=== PATIENT | male | born 1945 | race Caucasian/White ===

== ENCOUNTER 2020-09-22 07:37 | Day surgery (SDC) | payer MEDICARE, BC ==
[~2020-09-22] VITALS: Ht 190.5 cm; Wt 99.7 kg
[2020-09-22] VITALS (7 sets, daily range): BP systolic 116–176; BP diastolic 55–78
[2020-09-22] MEDS ORDERED: vancomycin/NS 1 GM ADD-VANTAGE 250 ML IV ONE (08:10)
[2020-09-22] MEDS ORDERED: Cefazolin 2GM/100ML NS IVPB 100 ML IV ONE (08:10)
[2020-09-22] MEDS ORDERED: normal saline 1000ml 1,000 ML IV SCH ×2 (08:10→11:05)
[2020-09-22] MEDS ORDERED: AMLO5TAB16 PO (08:27)
[2020-09-22] MEDS ORDERED: MOME220A3 (08:27)
[2020-09-22] MEDS ORDERED: DOXE10CA3 PO (08:27)
[2020-09-22] MEDS ORDERED: FLEC100T PO (08:27)
[2020-09-22] MEDS ORDERED: UMEC1DIS (08:27)
[2020-09-22] MEDS ORDERED: WARF-55 PO (08:27)
[2020-09-22] MEDS ORDERED: CHOL20004 PO (08:28)
[2020-09-22] MEDS ORDERED: OMEP-50 PO (08:29)
[2020-09-22] MEDS ORDERED: MAGN400C PO (08:31)
[2020-09-22 08:37] LABS: BASOPHILS % (AUTO) 0.4 % (0-1); EOSINOPHILS # (AUTO) 0.1 X10'3 (0-0.9); EOSINOPHILS % (AUTO) 1.9 % (0-6); HEMATOCRIT 47.8 % (42.0-52.0); HEMOGLOBIN 16.4 g/dl (14.0-17.9); LYMPHOCYTES # (AUTO) 2.5 X10'3 (1.1-4.8); LYMPHOCYTES % (AUTO) 40.8 % (21-51); MEAN CORPUSCULAR HEMOGLOBIN 31.2 PG (27.0-31.0); MEAN CORPUSCULAR HGB CONC 34.2 g/dL (33.0-36.5); MEAN CORPUSCULAR VOLUME 91.1 FL (78-98); MEAN PLATELET VOLUME 9.8 FL (7.4-10.4); MONOCYTES # (AUTO) 0.8 X10'3 (0-0.9); MONOCYTES % (AUTO) 12.7 % (2-12); NEUTROPHILS # (AUTO) 2.7 X10'3 (1.8-7.7); NEUTROPHILS % (AUTO) 44.2 % (42-75); PLATELET COUNT 227 X10'3 (140-440); RED BLOOD COUNT 5.25 X10'6 (4.70-6.10); WHITE BLOOD COUNT 6.1 X10'3 (4.5-11.0)
[2020-09-22 08:48] LABS: ALBUMIN 3.7 G/DL (3.4-5.0); ANION GAP 8 (8-16); BLOOD UREA NITROGEN 21 MG/DL (7-18); BUN/CREATININE RATIO 17.5 (5.4-32.0); CHLORIDE 103 MMOL/L (99-107); GLUCOSE 98 MG/DL (70-104); MAGNESIUM 2.5 MG/DL (1.5-2.4); POTASSIUM 4.1 MMOL/L (3.5-5.1); SODIUM 140 MMOL/L (135-145); eGFR 59 ML/MIN
[2020-09-22] MEDS ORDERED: midazolam 1 mg/ML 2ml injection ONE ×3 (08:50→09:54)
[2020-09-22] MEDS ORDERED: fentaNYL/PF 50MCG/1 ML 2ML syringe ONE (08:50)
[2020-09-22] MEDS ORDERED: LIDOcaine 1% (10mg/ml)w/preservative injection 20ml MDV ONE ×2 (08:50)
[2020-09-22] MEDS ORDERED: ceFAZolin 2gm in dextrose, iso 50 ML IV ONE (08:51)
[2020-09-22] MEDS ORDERED: ceFAZolin 1000mg inj ONE (08:51)
[2020-09-22] MEDS ORDERED: LIDOcaine 1% W/epiNEPHrine 1:100,000 20ml vial ONE (09:41)
== END 2020-09-22 12:50 | disposition home or self-care (01) ==
LOC: SSTAY O 07:37
PROVIDERS: ATTEND Internal Medicine Cardiovascular Disease
DX: I49.5 Sick sinus syndrome (principal); I45.89 Other specified conduction disorders; I48.91 Unspecified atrial fibrillation; J44.9 Chronic obstructive pulmonary disease, unspecified; I47.1 Supraventricular tachycardia; I10 Essential (primary) hypertension; G47.00 Insomnia, unspecified; F17.210 Nicotine dependence, cigarettes, uncomplicated; Z79.899 Other long term (current) drug therapy; Z79.01 Long term (current) use of anticoagulants; Z98.890 Other specified postprocedural states; Z82.3 Family history of stroke; Z80.9 Family history of malignant neoplasm, unspecified
CPT/HCPCS: 33208; 36415; 71045; 80048; 83735; 85025; 85610; 93005; 99152; 99153; C1785; C1898; J0690; J2001; J2250; J3010; A4565; A4620; A6258

== ENCOUNTER → 2021-02-09 | Outpatient (CLI) | payer MEDICARE, BC ==
[~2021-02-09] VITALS: Ht 160 cm; Wt 98.4 kg
[~2021-02-09] MED LIST: AMLO5TAB16 PO; CHOL20004 PO; DOXE10CA3 PO; FLEC100T PO; MAGN400C PO; MOME220A3; OMEP-50 PO; UMEC1DIS; WARF-55 PO; albuterol 2.5 MG/3 ML nebule NEB PRN
== END | disposition home or self-care (01) ==
LOC: RT 14:44
PROVIDERS: ATTEND Internal Medicine
DX: R94.2 Abnormal results of pulmonary function studies (principal); J44.9 Chronic obstructive pulmonary disease, unspecified
CPT/HCPCS: 94060; 94760

== ENCOUNTER 2021-03-28 04:56 | Outpatient (CLI) | payer MEDICARE, BC ==
[~2021-03-28 04:56] MED LIST changes: -albuterol 2.5 MG/3 ML nebule NEB PRN
== END 2021-03-28 23:59 | disposition home or self-care (01) ==
LOC: RT 04:56
PROVIDERS: ATTEND Internal Medicine
DX: J45.909 Unspecified asthma, uncomplicated (principal); J44.9 Chronic obstructive pulmonary disease, unspecified
CPT/HCPCS: 94618

== ENCOUNTER 2022-03-24 07:50 | Emergency (ER) | payer MEDICARE, BC ==
[~2022-03-24] VITALS: Ht 188 cm; Wt 94.1 kg
[~2022-03-24 07:50] MED LIST changes: -MOME220A3; -OMEP-50 PO; +OMEP20CA16 PO; +[UNRECOGNIZED DRUG - CODE]
[2022-03-24 08:08] VITALS: BP 148/68
[2022-03-24] MEDS ORDERED: dexamethasone 4mg tablet PO ONE (08:35)
[2022-03-24] MEDS ORDERED: albuterol 2.5 MG/3 ML nebule NEB ONE (08:35)
[2022-03-24] MEDS ORDERED: ipratropium 0.5 MG/2.5ML nebule IH ONE (08:35)
[2022-03-24 10:00] LABS: BASOPHILS # (AUTO) 0.1 X10'3 (0-0.2); BASOPHILS % (AUTO) 1.1 % (0-1); EOSINOPHILS # (AUTO) 0.2 X10'3 (0-0.9); EOSINOPHILS % (AUTO) 2.9 % (0-6); HEMATOCRIT 44.4 % (42.0-52.0); HEMOGLOBIN 15.5 g/dl (14.0-17.9); LYMPHOCYTES # (AUTO) 1.5 X10'3 (1.1-4.8); LYMPHOCYTES % (AUTO) 22.8 % (21-51); MEAN CORPUSCULAR HGB CONC 34.9 g/dL (33.0-36.5); MEAN CORPUSCULAR VOLUME 88.8 FL (78-98); MEAN PLATELET VOLUME 9.2 FL (7.4-10.4); MONOCYTES % (AUTO) 15.1 % (2-12); NEUTROPHILS # (AUTO) 3.9 X10'3 (1.8-7.7); NEUTROPHILS % (AUTO) 58.1 % (42-75); PLATELET COUNT 162 X10'3 (140-440); RED CELL DISTRIBUTION WIDTH 13.9 % (11.5-14.5); WHITE BLOOD COUNT 6.8 X10'3 (4.5-11.0)
[2022-03-24 10:15] LABS: ALANINE AMINOTRANSFERASE 56 U/L (12-78); ALBUMIN 3.2 G/DL (3.4-5.0); ALBUMIN/GLOBULIN RATIO 0.9 (1.1-1.5); ALKALINE PHOSPHATASE 96 IU/L (46-116); ANION GAP 8 (8-16); ASPARTATE AMINO TRANSFERASE 57 U/L (10-37); BILIRUBIN,TOTAL 1.3 MG/DL (0.1-1.0); BLOOD UREA NITROGEN 19 MG/DL (7-18); BUN/CREATININE RATIO 17.4 (5.4-32.0); CALCIUM 8.8 MG/DL (8.5-10.1); CHLORIDE 103 MMOL/L (99-107); CREATININE 1.09 MG/DL (0.60-1.10); GLUCOSE 99 MG/DL (70-104); POTASSIUM 3.9 MMOL/L (3.5-5.1); SODIUM 138 MMOL/L (135-145); TOTAL CARBON DIOXIDE 27.2 MMOL/L (24-32); TOTAL PROTEIN 6.8 G/DL (6.4-8.2); eGFR 65 ML/MIN
[2022-03-24] MEDS ORDERED: PRED20TA PO (11:14)
[2022-03-24] MEDS ORDERED: IPRA4AER IH (11:14)
== END 2022-03-24 11:50 | disposition home or self-care (01) ==
LOC: ER 07:50
DX: J44.9 Chronic obstructive pulmonary disease, unspecified (principal); Z20.822 Contact with and (suspected) exposure to COVID-19; J06.9 Acute upper respiratory infection, unspecified; Z87.891 Personal history of nicotine dependence
CPT/HCPCS: 36415; 71045; 80053; 83880; 84484; 85025; 87811; 93005; 94760; 99285

== ENCOUNTER 2024-09-30 13:40 | Emergency (ER) | payer BC, MEDICARE, OTHER ==
[~2024-09-30] VITALS: Ht 190.5 cm; Wt 87.1 kg
[2024-09-30 13:44] VITALS: TEMP 97.7
[2024-09-30 14:03] LABS: BASOPHILS # (AUTO) 0.1 X10'3 (0-0.2); BASOPHILS % (AUTO) 1.5 % (0-1); EOSINOPHILS # (AUTO) 0.6 X10'3 (0-0.9); EOSINOPHILS % (AUTO) 10.4 % (0-6); HEMATOCRIT 44.4 % (42.0-52.0); HEMOGLOBIN 14.8 g/dl (14.0-17.9); LYMPHOCYTES # (AUTO) 1.9 X10'3 (1.1-4.8); LYMPHOCYTES % (AUTO) 35.1 % (21-51); MEAN CORPUSCULAR HEMOGLOBIN 30.3 PG (27.0-31.0); MEAN CORPUSCULAR HGB CONC 33.4 g/dL (33.0-36.5); MEAN CORPUSCULAR VOLUME 90.7 FL (78-98); MONOCYTES # (AUTO) 0.7 X10'3 (0-0.9); MONOCYTES % (AUTO) 12.2 % (2-12); NEUTROPHILS # (AUTO) 2.2 X10'3 (1.8-7.7); NEUTROPHILS % (AUTO) 40.8 % (42-75); PLATELET COUNT 158 X10'3 (140-440); RED BLOOD COUNT 4.89 X10'6 (4.70-6.10); RED CELL DISTRIBUTION WIDTH 15.3 % (11.5-14.5); WHITE BLOOD COUNT 5.5 X10'3 (4.5-11.0)
--- NOTE | 2024-09-30 14:07 | ELECTROCARDIOGRAPH REPORT ---
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 Jaspreet Darby Measurements Intervals [place] Rate: 61 P: 0 GA: 159 QRS: 81 QRSD: 107 T: 68 QT: 444 QTc: 448 Interpretive Statements Atrial-paced complexes Borderline right axis deviation Baseline wander in lead(s) V4 Electronically Signed On 09-30-2024 20:38:[address] Jaspreet Darby Please click the below link to view image of tracing.
[2024-09-30 14:12] LABS: ALBUMIN 3.3 G/DL (3.4-5.0); ANION GAP 4 (8-16); BLOOD UREA NITROGEN 13 MG/DL (7-18); BUN/CREATININE RATIO 11.8 (10.0-20.0); CALCIUM 8.5 MG/DL (8.5-10.1); CHLORIDE 103 MMOL/L (99-107); GLUCOSE 95 MG/DL (70-104); POTASSIUM 4.1 MMOL/L (3.5-5.1); SODIUM 138 MMOL/L (135-145); TOTAL CARBON DIOXIDE 30.8 MMOL/L (24-32); eCRCL 63 ML/MIN; eGFR 64 ML/MIN
[2024-09-30 14:16] LABS: APTT 26 SECONDS (22-32); INR 1.1 INR; PROTHROMBIN TIME 11.6 SECONDS (9.0-12.0)
--- NOTE | 2024-09-30 14:20 | RADIOLOGY REPORT ---
EXAM: CT CT STROKE ALERT INDICATION: Stroke Alert TECHNIQUE: CT of the head without intravenous contrast. Radiation Dose Information: CT Dose: CTDI volume is 63.23 mGy. Dose-length product is 1157.61 mGy*cm The dose indicators for CT are the volume Computed Tomography (CT) Dose Index (CTDIvol) and the Dose Length Product (DLP), and are measured in units of mGy and mGy-cm, respectively. These indicators are not patient dose, but values generated from the CT scanner acquisition factors. The report includes radiation exposure data for exposures received during this examination. COMPARISON: None FINDINGS: There is no evidence of acute intracranial hemorrhage, extra-axial collection, mass effect, midline s hift, herniation or hydrocephalus. 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 The ventricles, sulci and cisterns are age appropriate. The vasques-white differentiation is intact. Patchy periventricular and subcortical white matter hypoattenuation is nonspecific but may be related to small vessel ischemic disease. The visualized paranasal sinuses and mastoid air cells are clear. The surrounding soft tissues and osseous structures are unremarkable. IMPRESSION: 1. No acute intracranial hemorrhage 2. Cortical atrophy 3. No CT findings of territorial ischemia. CRITICAL FINDINGS Critical Result: Stroke Alert NEGATIVE Findings discussed with Dr Doshi , at 09/30/2024 02:11 PM, and acknowledged receipt and understand ing of the findings.
--- NOTE | 2024-09-30 14:29 | RADIOLOGY REPORT ---
CHEST RADIOGRAPH Indication: Stroke Alert Technique: Single frontal view of the chest was obtained Comparison: CHEST,SINGLE VIEW on DOS: 03/24/22, CHEST,SINGLE VIEW on DOS: 09/22/20 FINDINGS: Lines and Tubes: Dual-chamber pacemaker in place with pulse generator over the left chest. Findings d o not appear significantly changed from 03/24/2022 Lungs: No focal consolidation. Pleura: No effusion. No pneumothorax. Cardiomediastinal contours: Unremarkable Bones: No acute osseous abnormality. IMPRESSION: 1. No acute cardiopulmonary disease.
--- NOTE | 2024-09-30 14:49 | Physician Documentation ---
History of Present Illness ~ Chief Complaint: Stroke Alert Stated Complaint: WEAKNESS/DIZZINESS Time Seen by MD: 14:23 Mode of Arrival: Dropped Off HPI 79-year-old male presenting for dizziness. Patient states that his symptoms started this morning. He was walking around her home and started feeling very unsteady on his feet. He states that he felt lightheaded to and is if he was going to pass out. He sat down and was brought to the emergency department. He denies any chest pain, shortness of breath or any other associated symptoms. He denies any actual syncopal episode or loss of consciousness. Medication Reconciliation Allergies: Coded Allergies: No Known Allergies (Unverified , 03/24/22) Scheduled Amlodipine Besylate (Amlodipine Besylate), 1 TAB PO DAILY, (Reported) Cholecalciferol (Vitamin D), 1 TAB PO DAILY, (Reported) Doxepin HCl (Doxepin HCl), 1 CAP PO HS, (Reported) Flecainide Acetate (Flecainide Acetate), 1 TAB PO BID, (Reported) Magnesium Oxide (Magnesium), Unknown Dose PO DAILY, (Reported) Omeprazole (Omeprazole), 1 CAP PO DAILY, (Reported) Warfarin Sodium (Warfarin Sodium), 1 TAB PO DAILY, (Reported) Miscellaneous Medications Mometasone Furoate (Asmanex), 1 PUFFS, (Reported) Umeclidinium Brm/Vilanterol Tr (Anoro Ellipta 62.5-25 Mcg INH), (Reported) Past Medical History Past Medical History: Bronchitis Review of Systems All Other Systems at this time: Reviewed and Negative Physical Exam Vital Signs: Temperature: 97.7, Source: Oral, Heart Rate: 63, Respiratory Rate: 16, BP: 145/77, Pulse Oximetry: 96, Weight: 87.100 Oxygen Flow Rate: 0 Physical Exam I have reviewed the triage vitals. CONST: Well developed and well nourished. In no acute distress HENT: Head Atraumatic EYES: Pupils are equal, round and reactive to light. Normal conjunctiva NECK: Normal range of motion. Supple. CARDIO: Normal rate and regular rhythm. No murmurs, rubs, or gallops. S1, S2. PULM/CHEST: No respiratory distress. Lungs clear to auscultation. No wheeze ABD: Soft and nontender. Nondistended. Bowel sounds normal. No guarding. : Exam deferred MSK: No edema. No deformity. NEURO: Alert and oriented to person, place and time. Moving all extremities SKIN: Warm and dry. PSYCH: Normal mood and affect. Good eye contact. Progress Results/Orders Results/Orders Orders - OLU HERNANDEZ MD Monitor (09/30/24 13:47) 2 Large Bore Ivs (09/30/24 13:47) Chest,Single View (09/30/24 13:47) Accucheck (09/30/24 13:47) Ct Stroke Alert (09/30/24 13:47) Completed Orders - OLU HERNANDEZ MD Cbc/Diff (09/30/24 13:47) Electrocardiogram (09/30/24 13:47) Chest,Single View (09/30/24 13:47) Ct Stroke Alert (09/30/24 13:47) BMP (09/30/24 13:47) PTT (09/30/24 13:47) Pt Inr (09/30/24 13:47) ESR (09/30/24 15:06) C-Reactive Protein (09/30/24 13:54) Vital Signs 09/30/24 09/30/24 09/30/24 09/30/24 13:44 14:00 14:17 14:27 Temp 97.7 Pulse 68 62 62 Resp 16 13 11 12 B/P (MAP) 139/87 145/77 148/73 Pulse Ox 97 97 97 O2 Flow Rate 0 09/30/24 09/30/24 14:42 15:42 Pulse 63 60 Resp 16 11 B/P (MAP) 145/77 (99) 137/77 (97) Pulse Ox 96 97 O2 Flow Rate 0 0 Laboratory Tests Test 09/30/24 13:50 09/30/24 13:54 Glucometer 107 H White Blood Count 5.5 Red Blood Count 4.89 Hemoglobin 14.8 Hematocrit 44.4 Mean Corpuscular Volume 90.7 Mean Corpuscular Hemoglobin 30.3 Mean Corpuscular Hemoglobin Concent 33.4 Red Cell Distribution Width 15.3 H Platelet Count 158 Mean Platelet Volume 9.0 Neutrophils (%) (Auto) 40.8 L Lymphocytes (%) (Auto) 35.1 Monocytes (%) (Auto) 12.2 H Eosinophils (%) (Auto) 10.4 H Basophils (%) (Auto) 1.5 H Neutrophils # (Auto) 2.2 Lymphocytes # (Auto) 1.9 Monocytes # (Auto) 0.7 Eosinophils # (Auto) 0.6 Basophils # (Auto) 0.1 CBC Comment Erythrocyte Sedimentation Rate 7 Prothrombin Time 11.6 INR International Normalized Ratio 1.1 Activated Partial Thromboplast Time 26 Coagulation Comments Sodium Level 138 Potassium Level 4.1 Chloride Level 103 Carbon Dioxide Level 30.8 Anion Gap 4 L Blood Urea Nitrogen 13 Creatinine 1.10 Estimated GFR/1.73 m2 64 BUN/Creatinine Ratio 11.8 Glucose Level 95 Calcium Level 8.5 C-Reactive Protein 0.90 H Albumin 3.3 L Chemistry Comments EKG/XRAY/CT/US/VASC/MRI Chest X-Ray : Additional Comments CHEST RADIOGRAPH Indication: Stroke Alert Technique: Single frontal view of the chest was obtained Comparison: CHEST,SINGLE VIEW on DOS: 03/24/22, CHEST,SINGLE VIEW on DOS: 09/22/20 FINDINGS: Lines and Tubes: Dual-chamber pacemaker in place with pulse generator over the left chest. Findings do not appear significantly changed from 03/24/2022 Lungs: No focal consolidation. Pleura: No effusion. No pneumothorax. Cardiomediastinal contours: Unremarkable Bones: No acute osseous abnormality. IMPRESSION: 1. No acute cardiopulmonary disease. : Impression EXAM: CT CT STROKE ALERT INDICATION: Stroke Alert TECHNIQUE: CT of the head without intravenous contrast. Radiation Dose Information: CT Dose: CTDI volume is 63.23 mGy. Dose-length product is 1157.61 mGy*cm The dose indicators for CT are the volume Computed Tomography (CT) Dose Index (CTDIvol) and the Dose Length Product (DLP), and are measured in units of mGy and mGy-cm, respectively. These indicators are not patient dose, but values generated from the CT scanner acquisition factors. The report includes radiation exposure data for exposures received during this examination. COMPARISON: None FINDINGS: There is no evidence of acute intracranial hemorrhage, extra-axial collection, mass effect, midline shift, herniation or hydrocephalus. 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 The ventricles, sulci and cisterns are age appropriate. The vasques-white differentiation is intact. Patchy periventricular and subcortical white matter hypoattenuation is nonspecific but may be related to small vessel ischemic disease. The visualized paranasal sinuses and mastoid air cells are clear. The surrounding soft tissues and osseous structures are unremarkable. IMPRESSION: 1. No acute intracranial hemorrhage 2. Cortical atrophy 3. No CT findings of territorial ischemia. CRITICAL FINDINGS Critical Result: Stroke Alert NEGATIVE Findings discussed with Dr Hernandez , at 09/30/2024 02:11 PM, and acknowledged receipt and understanding of the findings. Departure Disposition: HOME / SELF CARE / HOMELESS Impression: Primary Impression: Dizziness Condition: Improved Discharge Instructions: Dizziness Additional Instructions: Please drink plenty of fluids. Please ensure that you get plenty of rest today. Take good care and be careful when getting up from a seated position and always use an assistive device to ambulate. Follow up very closely with primary care physician in the next 2-3 days. Return to the emergency department with any acutely worsening symptoms. Referrals: NO PRIMARY CARE PROVIDER (PCP) OLU HERNANDEZ MD September 30, 2024 14:49
[2024-09-30 17:04] VITALS: BP 160/65; PULSE 60; RESP 13; O2SAT 95
== END 2024-09-30 17:07 | disposition home or self-care (01) ==
LOC: ER 13:40
DX: R42 Dizziness and giddiness (principal); Z79.899 Other long term (current) drug therapy
CPT/HCPCS: 36415; 70450; 71045; 80048; 82948; 85025; 85610; 85651; 85730; 86140; 93005; 99285

== ENCOUNTER 2024-12-17 17:19 | Emergency (ER) | payer OTHER ==
[~2024-12-17] VITALS: Ht 190.5 cm; Wt 62.2 kg
[2024-12-17 17:25] VITALS: BP 118/73; PULSE 74; RESP 16; O2SAT 96
--- NOTE | 2024-12-17 18:18 | Physician Documentation ---
History of Present Illness ~ Chief Complaint: Mechanical Fall Stated Complaint: FALL Time Seen by MD: 18:10 Source: patient, family Mode of Arrival: POV Exam Limitations: no limitations HPI 79-year-old male on blood thinners denies head strike or loss of consciousness had a ground level mechanical fall where he was walking in a parking lot with his and his toe scraped 1 of the tired providers in a parking lot he was between 2 cars and had a skin tear to the left arm and an abrasion to the left knee. Patient did not hit his head the fall was witnessed from his . Patient has been having some chronic balance issues has been evaluated by his primary care referred to physical therapy and has a prescription for a walker due to some of his balance issues. Tetanus within 5 Years?: No Medication Reconciliation Allergies: Coded Allergies: No Known Allergies (Unverified , 03/24/22) Scheduled Amlodipine Besylate (Amlodipine Besylate), 1 TAB PO DAILY, (Reported) Cholecalciferol (Vitamin D), 1 TAB PO DAILY, (Reported) Doxepin HCl (Doxepin HCl), 1 CAP PO HS, (Reported) Flecainide Acetate (Flecainide Acetate), 1 TAB PO BID, (Reported) Magnesium Oxide (Magnesium), Unknown Dose PO DAILY, (Reported) Omeprazole (Omeprazole), 1 CAP PO DAILY, (Reported) Warfarin Sodium (Warfarin Sodium), 1 TAB PO DAILY, (Reported) Miscellaneous Medications Mometasone Furoate (Asmanex), 1 PUFFS, (Reported) Umeclidinium Brm/Vilanterol Tr (Anoro Ellipta 62.5-25 Mcg INH), (Reported) Past Medical History 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 HEENT: PERRL, EOMI, no injection, moist mucous membranes. Neck: Full range of motion. No cervical spine tenderness Respiratory: Lungs clear, no respiratory distress. Chest: No accessory muscle use. Cardiovascular: Regular rate and rhythm, no murmurs. Extremities: Normal range of motion, no deformity. No obvious deformity to the left knee small superficial abrasions. Multiple skin avulsion/tears to the left forearm and upper extremity no tenderness to the elbow forearm wrist or hand. Neurologic: Oriented x4. Psychiatric: Normal mood and affect. Skin: Normal color, warm and dry. No edema, no ecchymosis. Progress Results/Orders Results/Orders Vital Signs 12/17/24 17:25 Temp 98.3 Pulse 74 Resp 16 B/P (MAP) 118/73 Pulse Ox 96 Medical Decision Making Findings No head strike balance issues chronic and being cared for by primary care skin tears cleaned and dressed patient to follow up with primary care physical therapy use his walker. Which home with Departure Time of Disposition: 18:26 Disposition: 01 HOME / SELF CARE / HOMELESS Impression: Primary Impression: Fall Additional Impression: Abrasion Condition: Stable Discharge Instructions: Fall Prevention in the Home, Adult, [id number], Abrasion Additional Instructions: Keep dressings clean and dry change daily. Follow up closely with primary care physical therapy and use walker to help prevent falls. Monitor for any new or worsening symptoms feel free to return to the ER. Referrals: NO PRIMARY CARE PROVIDER (PCP) Education Educated: Patient, Family Educated regarding: diagnosis, treatment, need for follow up Signature Scribe Signature: No scribe Attestation: The note accurately reflects work and decisions made by me.Humaira PORTER 12/17/24 18:18 HUMAIRA WADE NP Dec 17, 2024 18:18
[2024-12-17] MEDS: bacitracin 15gm ointment TP ONE (18:36)
[2024-12-17 19:09] VITALS: TEMP 98.3
== END 2024-12-17 19:10 | disposition home or self-care (01) ==
LOC: ER 17:19
DX: S41.112A Laceration without foreign body of left upper arm, initial encounter (principal); S80.212A Abrasion, left knee, initial encounter; W18.30XA Fall on same level, unspecified, initial encounter; Y93.01 Activity, walking, marching and hiking; Y92.481 Parking lot as the place of occurrence of the external cause; Y99.8 Other external cause status
CPT/HCPCS: 99284

== ENCOUNTER 2025-01-01 18:19 | Inpatient (IN) | payer OTHER ==
[~2025-01-01] VITALS: Ht 190.5 cm; Wt 86.3 kg
--- NOTE | 2025-01-01 18:26 | ELECTROCARDIOGRAPH REPORT ---
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 Reading MD: Dr. Mona Mckinnon Measurements Intervals [place] Rate: 103 P: 77 [place]: 197 QRS: 0 QRSD: 87 T: 269 QT: 384 QTc: 503 Interpretive Statements Sinus tachycardia Low voltage, extremity and precordial leads Nonspecific T abnormalities, lateral leads Prolonged QT interval Baseline wander in lead(s) V3 Electronically Signed On 01-01-2025 18:25:[address] Mona Mckinnon Please click the below link to view image of tracing.
--- NOTE | 2025-01-01 18:27 | Physician Documentation ---
History of Present Illness ~ Stated Complaint: SOB Time Seen by MD: 18:24 OK to notify your PCP?: Yes Source: patient, RN/MD, EMS, RN notes reviewed, EMS notes reviewed, old records Mode of Arrival: EMS Exam Limitations: no limitations HPI 79 year old male seen in bed 02 with history of pacemaker, Afib and COPD presents to the emergency department via EMS for complaints of shortness of breath that began one hour prior to arrival. EMS states that patient began v omiting and experiencing shortness of breath tonight, He states that upon his arrival patient was pale and saturating at 80% on room air and feeling dizzy. When asked the patient endorses recent falls as well as edema and bloating. He states he is on Eliquis, Lasix, and albuterol treatments. Medication Reconciliation Allergies: Coded Allergies: No Known Allergies (Unverified , 01/01/25) Scheduled Amlodipine Besylate (Amlodipine Besylate), 1 TAB PO DAILY, (Reported) Apixaban (Eliquis), 1 TAB PO DAILY, (Reported) Cholecalciferol (Vitamin D), 1 TAB PO DAILY, (Reported) Doxepin HCl (Doxepin HCl), 1 CAP PO HS, (Reported) Flecainide Acetate (Flecainide Acetate), 1 TAB PO BID, (Reported) Furosemide (Furosemide), 1 TAB PO DAILY, (Reported) Magnesium Oxide (Magnesium), Unknown Dose PO DAILY, (Reported) Meclizine HCl (Meclizine HCl), 1 TAB PO Q12H, (Reported) Omeprazole (Omeprazole), 1 CAP PO DAILY, (Reported) Miscellaneous Medications Mometasone Furoate (Asmanex), 1 PUFFS, (Reported) Umeclidinium Brm/Vilanterol Tr (Anoro Ellipta 62.5-25 Mcg INH), (Reported) Discontinued Medications Warfarin Sodium (Warfarin Sodium), 1 TAB PO DAILY, (Reported) Discontinued Reason: patient no longer taking Past Medical History 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 Physical Exam Vital Signs: RN Vital Signs have been reviewed: Yes Pulse Oximetry Reflects: adequate oxygenation Physical Exam General: The patient is well developed, well nourished, nontoxic appearing and is in no acute distress. Skin: [place], warm and dry with no rashes. HEENT: Head was normocephalic and atraumatic. Eyes - pupils equal, round, reactive to light and accommodation. Extraocular movements were intact. Conjunctivae were nonicteric. Ears - bilateral tympanic membranes were normal. The mouth and oropharynx were clear with moist mucous membranes. There were no pharyngeal exudates or erythema. Neck: Supple and nontender. There was no jugular venous distention, lymphadenopathy, thyromegaly or masses. Chest: Trace wheezing. No accessory muscle use. No dullness to percussion. Heart: Rate regular and rhythmic. S1, S2. No murmurs. Palpation of the chest wall was normal. No rubs or thrills. Abdomen: Soft, and distended abdomen. Positive bowel sounds. No guarding or rebound. No hepatosplenomegaly or palpable masses. Extremities: Trace edema from hips down. The patient moves all extremities. Pulses were equal and symmetric. Neurologic: Cranial nerves II-XII were intact. Sensation was intact to light touch throughout. Motor strength was 5/5 in all four extremities. Deep tendon reflexes were intact in both upper and lower extremities. Psychologic: The patient was oriented to person, place and time. The patient demonstrated appropriate judgement and insight. Progress Progress Note 2331: The case was discussed with the hospitalist at this time who kindly agreed to admission. Results/Orders Results/Orders Orders - JASPREET DARBY MD Chest,Single View (01/01/25 18:22) Monitor (01/01/25 18:22) Saline Lock (01/01/25 18:22) Oxygen (01/01/25 18:22) Electrocardiogram (01/01/25 18:22) Culture Blood (01/01/25 18:34) Page Hospitalist (01/01/25 23:02) Fill Out Med Reconciliation (01/01/25 23:02) Completed Orders - JASPREET DARBY MD Chest,Single View (01/01/25 18:22) Cbc/Diff (01/01/25 18:22) PBNP (01/01/25 18:22) Electrocardiogram (01/01/25 18:22) Hs Troponin I W Calculations (01/01/25 18:22) Hs Troponin I W Calculations (01/01/25 20:22) Hs Troponin I W Calculations (01/01/25 21:22) Lacticsepsis (01/01/25 18:34) Lipase (01/01/25 18:34) Procalcitonin (01/01/25 18:34) MG (01/01/25 18:34) CMP (01/01/25 18:34) Carvedilol Tablet (Coreg Tablet) (01/01/25 19:28) Methylprednisolone Sod Succ (Solumedrol (01/01/25 19:30) Furosemide 40mg Inj (Lasix Inj) (01/01/25 19:35) Ondansetron Inj. (Zofran 4mg/2ml Vial) (01/01/25 19:45) Lactic,2hr (01/01/25 20:37) Vital Signs 01/01/25 01/01/25 01/01/25 01/01/25 18:23 18:36 18:58 21:16 Temp 97.9 Pulse 101 101 88 Resp 25 16 16 24 B/P (MAP) 134/84 134/84 (101) 126/74 (91) Pulse Ox 98 99 94 O2 Flow Rate 6.0 0 01/01/25 23:27 Pulse 84 Resp 16 B/P (MAP) 142/84 (103) Pulse Ox 96 O2 Flow Rate 0 Laboratory Tests Test 01/01/25 19:00 01/01/25 19:08 01/01/25 20:20 01/01/25 21:17 White Blood Count 10.7 Red Blood Count 4.86 Hemoglobin 15.2 Hematocrit 44.4 Mean Corpuscular Volume 91.4 Mean Corpuscular Hemoglobin 31.2 H Mean Corpuscular Hemoglobin Concent 34.1 Red Cell Distribution Width 15.2 H Platelet Count 327 Mean Platelet Volume 8.6 Neutrophils (%) (Auto) 70.3 Lymphocytes (%) (Auto) 20.3 L Monocytes (%) (Auto) 8.3 Eosinophils (%) (Auto) 0.4 Basophils (%) (Auto) 0.7 Neutrophils # (Auto) 7.5 Lymphocytes # (Auto) 2.2 Monocytes # (Auto) 0.9 Eosinophils # (Auto) 0.0 Basophils # (Auto) 0.1 CBC Comment Troponin I High Sensitivity 23 24 25 Sodium Level 128 L Potassium Level 3.6 Chloride Level 94 L Carbon Dioxide Level 28.4 Anion Gap 6 L Blood Urea Nitrogen 25 H Creatinine 1.61 H Estimated GFR/1.73 m2 41 BUN/Creatinine Ratio 15.5 Glucose Level 151 H Lactic Acid Level 3.2 H 3.2 H Calcium Level 8.4 L Magnesium Level 2.1 Total Bilirubin 2.4 H Aspartate Amino Transf (AST/SGOT) 50 H Alanine Aminotransferase (ALT/SGPT) 38 Alkaline Phosphatase 184 H Pro-B-Type Natriuretic Peptide 565 H Total Protein 6.9 Albumin 2.9 L Globulin 4.0 Albumin/Globulin Ratio 0.7 L Lipase 37 Procalcitonin 0.11 Chemistry Comments Troponin I High Sens Percent Delta 4 4 Troponin I Hi Sens Absolute Change 1 1 Microbiology Date/Time Source Procedure Growth Status 01/01/25 20:20 Blood Arm Right Blood Culture - Preliminary NEGATIVE (LESS THAN 24 HOURS) Resulted Re-Evaluation Re-evaluation : Bronchodilator Tx Response: mild relief Re-Evaluation: Improved Progress Patient was seen and examined. Patient is given reassurance. Patient initially had some low saturation also some abdominal pain issues as well however patient is significantly fluid overloaded with pitting edema from the abdomen and thighs down. Patient was then placed on a monitor laboratory work was obtained CBC was reassuring without any leukocytosis WBCs 10.7 no anemia no left shift. Chemistry was obtained. And the sodium level is low at 128. Also BUN is elevated at 25 and creatinine is elevated at 1.61 above baseline consistent with acute renal failure possibly due to dehydration. Lactic acidosis is also elevated at 3.2 which has a bit concerning. Patient was not hydrated because of the anasarca and significant edema in fact patient received Lasix. Bilirubin is elevated 2.4 but the patient has had prior elevations in bilirubin in the past. ProBNP is surprisingly low at 565. Albumin is also low at 2.9 which may be contributing to the patient's edema. Patient received Coreg 3.125 mg p.o. as well as Lasix 40 mg. Patient received Solu-Medrol for shortness of breath after just complaining a neb treatment from EMS. Lung sounds are pretty clear relatively speaking. Zofran was later given for some nausea. I contacted the hospitalist service who kindly agreed to admit the patient for cardiac workup diuresing and further management as well as the electrolyte abnormalities of hyponatremia. Continuous court monitor sinus tachycardia heart rate 100s abnormal, my interpretation. Pulse oximetry monitor interpretation initially was low at 98% on 6 L oxygen, abnormal my interpretation. Afterwards patient oxygenation is now 99% on room air, normal, my interpretation. 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 Jaspreet Darby Measurements Intervals [place] Rate: 103 P: 77 NV: 197 QRS: 0 QRSD: 87 T: 269 QT: 384 QTc: 503 Interpretive Statements Sinus tachycardia Low voltage, extremity and precordial leads Nonspecific T abnormalities, lateral leads Prolonged QT interval Baseline wander in lead(s) V3 Electronically Signed On 01-01-2025 18:25:[address] Jaspreet Darby Please click the below link to view image of tracing. EKG Date and Time:01/01/251822 Electronically Signed by: JASPREET DARBY MD Date and Time: 01/01/251824 Chest X-Ray : Additional Comments CHEST RADIOGRAPH REASON FOR EXAM: Chest pain COMPARISON: DI CHEST,SINGLE VIEW on DOS: 09/30/24, CHEST,SINGLE VIEW on DOS: 03/24/22, CHEST,SINGLE VIEW on DOS: 09/22/20 TECHNIQUE: One view of the chest is provided FINDINGS: The cardiomediastinal silhouette is within normal limits for technique. There is a 2 lead cardiac pacer. There is aortic atherosclerosis. There is no focal airspace disease. There is no significant pleural effusion. No acute bony abnormality is identified. IMPRESSION: No radiographic evidence of acute cardiopulmonary process. Electronically Signed by:NEGRO KAY MD Date & Time: 01/01/252021 Medical Decision Making Additional info obtained from: old records Differential Dx:Considerations: Include: anxiety, asthma, bronchitis, cardiogenic shock, CHF, COPD, dysrhythmia, hyponatremia, myocardial infarction, panic attack, pneumonia, pneumonitis, pneumothorax, pulmonary embolism, respiratory distress, upper resp. infection, other Departure Time of Disposition: 23:33 Disposition: 09 ADMITTED INPATIENT Admitted to Inpatient Unit: yes, to hospitalist Impression: Primary Impression: Acute renal failure Qualified Codes: N17.9 - Acute kidney failure, unspecified Additional Impressions: Hyponatremia Anasarca Condition: Fair Referrals: NO PRIMARY CARE PROVIDER (PCP) Education Educated: Patient Educated regarding: diagnosis, treatment, prognosis, need for follow up, other Signature Scribe Signature: Scribed for Jaspreet Darby MD by Aaron Murphy . 01/01/25 18:52 Attestation: The note accurately reflects work and decisions made by me.Jaspreet Darby MD 01/01/25 18:27 JASPREET DARBY MD Jan 01, 2025 18:27 AARON JOHNSON Jan 01, 2025 18:53
[2025-01-01 19:18] LABS: MEAN PLATELET VOLUME 8.6 FL (7.4-10.4); RED CELL DISTRIBUTION WIDTH 15.2 % (11.5-14.5)
[2025-01-01] MEDS ORDERED: furosemide 10 MG/1 ML 10ml inj IV ONE (19:30)
[2025-01-01 19:32] LABS: CREATININE 1.61 MG/DL (0.60-1.10); TOTAL CARBON DIOXIDE 28.4 MMOL/L (24-32); eCRCL 43 ML/MIN; eGFR 41 ML/MIN
[2025-01-01 19:38] LABS: PRO BRAIN NATRIURETIC PEPTIDE 565 PG/ML (0-450)
[2025-01-01] MEDS: ondansetron/PF 4mg/2ml inj IV ONE (20:00)
--- NOTE | 2025-01-01 20:25 | RADIOLOGY REPORT ---
CHEST RADIOGRAPH REASON FOR EXAM: Chest pain COMPARISON: DI CHEST,SINGLE VIEW on DOS: 09/30/24, CHEST,SINGLE VIEW on DOS: 03/24/22, CHEST,SINGLE VIE W on DOS: 09/22/20 TECHNIQUE: One view of the chest is provided FINDINGS: The cardiomediastinal silhouette is within normal limits for technique. There is a 2 lead c ardiac pacer. There is aortic atherosclerosis. There is no focal airspace disease. There is no signif icant pleural effusion. No acute bony abnormality is identified. IMPRESSION: No radiographic evidence of acute cardiopulmonary process.
[2025-01-01] MEDS ORDERED: FURO20TA4 PO (23:12)
[2025-01-01] MEDS ORDERED: APIX5TAB3 PO (23:12)
[2025-01-01] MEDS ORDERED: MECL-302 PO (23:12)
[2025-01-01] MEDS ORDERED: magnesium Cl slow-release 64mg tablet PO PRN (23:55)
[2025-01-01] MEDS ORDERED: mag hydrox/Alum hydrox/simeth 30ml oral suspension PO PRN (23:55)
[2025-01-01] MEDS ORDERED: potassium Cl 20 mEq SR tablet PO PRN ×2 (23:55)
[2025-01-01] MEDS ORDERED: magnesium sulf-water 4G/100mL 100 ML IV PRN (23:55)
[2025-01-01] MEDS ORDERED: magnesium sulf-water 2g/50mL 50 ML IV PRN (23:55)
[2025-01-01] MEDS ORDERED: potassium Cl 40MEQ/1/2NS 520ml 520 ML IV PRN (23:55)
[2025-01-01] MEDS ORDERED: magnesium hydroxide 30ml (MOM) UD suspension PO PRN (23:55)
[2025-01-01] MEDS ORDERED: metoclopramide 5 mg/ml inj IV PRN (23:55)
[2025-01-02] MEDS ORDERED: ipratropium 0.5 MG/2.5ML nebule IH PRN (00:10)
[2025-01-02] MEDS ORDERED: albuterol 2.5 MG/3 ML nebule NEB PRN (00:10)
[2025-01-02] MEDS: ondansetron/PF 4mg/2ml inj IV PRN (00:11)
--- NOTE | 2025-01-02 00:26 | HISTORY AND PHYSICAL-Residence ---
History & Physical Providers to CC Resident Creating Document: DAVID LOPEZ RES ~ History of Present Illness Reason for Admit\Complaint: Acute CHF exacerbation History of Present Illness This is a 79-year-old male patient with a past medical history of atrial fibrillation, hypertension, COPD, presented to the emergency department for shortness of breath, lower extremity peripheral edema, cough, nausea and vomiting. The shortness of breath is worse with exertion, denies hemoptysis, fever, chest pain, palpitation or dizziness. He also noted abdominal distension and reports mild suprapubic pain, but no associated dysuria, hematuria, diarrhea or other symptoms. Last bowel movement was yesterday. Allergies: Coded Allergies: No Known Allergies (Unverified , 01/01/25) Home Medications Home Medications Active Reported Eliquis (Apixaban) 5 Mg Tablet 1 Tab PO DAILY 30 Days Meclizine HCl 25 Mg Tablet 1 Tab PO Q12H Furosemide 20 Mg Tablet 1 Tab PO DAILY Magnesium (Magnesium Oxide) Unknown Strength Capsule Unknown Dose PO DAILY Omeprazole 20 Mg Capsule.dr 1 Cap PO DAILY Vitamin D (Cholecalciferol) 2,000 Unit Tablet 1 Tab PO DAILY Anoro Ellipta 62.5-25 Mcg INH (Umeclidinium Brm/Vilanterol Tr) 1 Each Disk.w.dev Amlodipine Besylate 5 Mg Tablet 1 Tab PO DAILY Flecainide Acetate 100 Mg Tablet 1 Tab PO BID Doxepin HCl 10 Mg Capsule 1 Cap PO HS Asmanex (Mometasone Furoate) 220 Mcg Aer.pow.ba 1 Puffs Past Medical History Past Medical History Atrial fibrillation Hypertension COPD Past Surgical History Surgical History Comment Appendectomy Past Social History Smoking: Quit greater than 1 year (The patient quit smoking in 1966) Alcohol Use: Occasionally Drug Use: None Lives with: Spouse Lives In: Home Occupation: retired ROS All Other Systems: Reviewed and Negative (Except for HPI) Respiratory: Reports: cough, shortness of breath, SOB with exertion Exam Vitals: Vital Signs Date Time Temp Pulse Resp B/P (MAP) Pulse Ox O2 Delivery O2 Flow Rate FiO2 01/01/25 23:27 84 16 142/84 (103) 96 0 01/01/25 18:23 97.9 General: General: Awake and Alert, no acute distress. HEENT: Conjunctiva pink, mild jaundice, Mucus Membranes moist. Neck: Supple without masses and tenderness. Resp: Unlabored. Lungs clear to auscultation bilaterally. Heart: Regular Rate and rhythm, normal S1 and S2 without murmur, rub or gallop. Abdomen: Moderate abdominal distension, hypertympanic, soft and non tender, no organomegaly Extremities: 4+ bilateral pitting lower extremity edema. No clubbing or cyanosis. Skin: Warm and Dry. Diagnostic Data Last Recorded Lab Results: 01/01/25189901/01/251907 Advance Care Planning Advanced Care plannin - 30 Minutes (The patient wishes to be full code) Additional Plan Assessment This is a 79-year-old male patient with a past medical history of atrial fibrillation, hypertension, COPD, admitted for acute CHF exacerbation. Patient received Lasix IV. Pending echocardiogram and further workup. Plan Acute CHF exacerbation - unknown EF, possibly right heart heart failure Shortness of breath + severe peripheral edema Chest x-ray: No radiographic evidence of acute cardiopulmonary process. BNP 565, troponins negative Procalcitonin 0.11, lactic acid 3.2 Lasix 40 mg IV Lasix 20 mg IV b.i.d. Started on low-dose carvedilol 3.125 mg b.i.d. Hold amlodipine 5mg - might be contributing to the peripheral edema Ordered echocardiogram Abdominal distension Liver disease vs right heart failure Bilirubin 2.4, AST 50, ALT 38, alkaline phosphatase 184, albumin 2.9 Persistent nausea and vomiting Ordered abdomen CT Full liquid diet as tolerated Acute kidney injury BUN 25, creatinine 1.61 Ordered urinalysis Ordered urine lytes Hypervolemic hyponatremia Sodium 129 Ordered urine sodium and osmolality Continue Lasix IV for treatment of hypervolemia History of atrial fibrillation Current on sinus rhythm Eliquis reduced from 5 mg to 2.5 mg b.i.d. - Cr > 1.5 and age > 80 yo Continue flecainide COPD - not on acute exacerbation No wheezing or productive cough Continue Anoro and mometasone Albuterol and ipratropium p.r.n. Code Status: Full code DVT prophylaxis: Eliquis Analgesia/sedation: Morphine Line/tube: PIV GI prophylaxis: Omeprazole Nutrition: Full liquid diet as tolerated Prognosis: Guarded Disposition: Admit to hospital for further evaluation and treatment. Pt was seen and evaluated by the resident team I agree with his plan of care as documented I suggested that he get a Right Upper quadrant ultrasound Consult Cardiology Thank you Date of Service: Jan 02, 2025 Billing Provider: FELIPE OBRIEN MD, LUCAS, RES Jan 02, 2025 00:26 FELIPE OBRIEN MD Jan 02, 2025 04:04
[2025-01-02 01:07] LABS: MEAN PLATELET VOLUME 8.7 FL (7.4-10.4); RED CELL DISTRIBUTION WIDTH 15.1 % (11.5-14.5)
[2025-01-02 01:09] LABS: CREATININE 1.63 MG/DL (0.60-1.10); TOTAL CARBON DIOXIDE 27.5 MMOL/L (24-32); eCRCL 42 ML/MIN; eGFR 41 ML/MIN
--- NOTE | 2025-01-02 01:24 | RADIOLOGY REPORT ---
Exam: CT CT ABDOMEN PELVIS History: Distended abdomen, nausea, vomiting COMPARISON: None Technique: Multidetector spiral CT of the abdomen and pelvis was performed from lung bases to pubic s ymphysis without contrast. Axial, coronal and sagittal multiplanar reformats were performed by the te chnologist on a separate workstation. Radiation Dose : 1. Abdomen/Pelvis: CTDIvol 29 mGy, DLP 1765 mGy*cm. Findings: Lung Bases: Emphysema with coarse reticular opacities consistent with fibrosis, and mild bronchiectas is. Trace layering pleural effusions. Small heart size with partially imaged cardiac leads. No karen cardial effusion. Liver: Diffusely nodular contour. Gallbladder and Biliary Tree: Layering calcified stones in the gallbladder neck. No obvious wall thi ckening or ductal dilation. Spleen: Unremarkable Pancreas: Moderate atrophy. Adrenal Glands: Unremarkable Kidneys: No evidence of urinary stone or obstruction. Symmetric renal atrophy. Simple density left renal cyst. Bladder: Unremarkable Bowel: Mild distal esophageal wall thickening. Remainder of the GI tract is normal in caliber and wal l thickness. No obstruction. Nonvisualized appendix. Colonic diverticulosis. Ascites: Large volume 4 quadrant ascites and diffuse mesenteric edema. Lymphadenopathy: No obvious adenopathy. Abdominal Wall : Moderate anasarca. Bilateral fat/ascites containing inguinal hernias. Vasculature: Mild atherosclerosis. Pelvic Organs: Prostatomegaly. Musculoskeletal: No acute osseous finding. Degenerative change of the spine and pelvis. IMPRESSION: 1. Cirrhotic hepatic morphology with sequela of portal hypertension including large volume 4 quadrant ascites. Subcutaneous anasarca and trace pleural effusions also likely related. 2. Mild distal esophageal wall thickening may represent esophagitis or congestive enteropathy. 3. Colonic diverticulosis and cholelithiasis without evidence of complication. Radiation optimization: All CT scans at this facility use at least one of these dose optimization pilo hniques: automated exposure control mA and/or kV adjustment per patient size (includes targeted exam s where dose is matched to clinical indication) or iterative reconstruction.
[2025-01-02 02:25] LABS: OSMOLALITY UA 435.0 MOSM/K (50-1400)
[2025-01-02 02:30] LABS: LEUKOCYTE ESTERASE ,URINE NEGATIVE (Neg); NITRITES, URINE NEGATIVE (Neg); OCCULT BLOOD,URINE NEGATIVE (Neg)
[2025-01-02 02:31] LABS: UA COLLECTION TYPE CLN CATCH MIDSTREAM
[2025-01-02 02:35] LABS: CREATININE,URINE RANDOM 123.0 MG/DL; UA UREA RANDOM 507.0 MG/DL
[2025-01-02 02:48] VITALS: PULSE 91; RESP 18; O2SAT 94
[2025-01-02 02:55] LABS: OSMOLALITY 280 MOSM/K (280-300)
[2025-01-02] MEDS: K and/or MAG REPLACEMENT MC SCH (08:00)
--- NOTE | 2025-01-02 08:20 | RADIOLOGY REPORT ---
INDICATION: Cirrhosis assessment TECHNIQUE: Multiple real-time sonographic images were obtained of the right upper quadrant. COMPARISON: CT CT ABDOMEN PELVIS on DOS: 01/02/25 FINDINGS: Nodular cirrhotic liver. The liver measures 12.6 cm. There is no intrahepatic or extrahepatic ductal dilatation. The common duct measures 0.5 cm. Cholelithiasis. The gallbladder wall measures 0.3 cm and is within normal limits. The right kidney measures 9.6 cm. The right kidney is normal in contour, size, and shape. The echogen icity is normal. There is no hydronephrosis. The pancreas is not well visualized due to overlying bowel gas. Moderate ascites. IMPRESSION: Hepatic cirrhosis. Moderate ascites. Cholelithiasis.
[2025-01-02] MEDS: docusate sod 100mg capsule PO SCH (08:39)
[2025-01-02] MEDS: pantoprazole 40mg Tablet.DR PO SCH (08:39)
[2025-01-02] MEDS: furosemide 10 MG/1 ML 10ml inj IV SCH (08:40)
[2025-01-02] MEDS: ondansetron/PF 4mg/2ml inj IV ONE (11:29)
[2025-01-02 12:45] VITALS: BP 137/93; PULSE 89; RESP 17; TEMP 97.5; O2SAT 97
[2025-01-02] MEDS: proMETHazine 25mg rectal suppository RC ONE (14:23)
[2025-01-02 16:08] VITALS: PULSE 95; RESP 16; O2SAT 96
--- NOTE | 2025-01-02 17:01 | PROGRESS NOTE ---
Daily Progress Note Providers to CC ~ Antibiotic Timeout Antibiotic Ordered?: Yes MRSA Education MRSA Education Provided to pt: No Subjective No new complaints, RN reports patient has continued to have vomiting despite several doses of IV zofran , no blood in the emesis noted Objective Vital Signs Date Time Temp Pulse Resp B/P (MAP) Pulse Ox O2 Delivery O2 Flow Rate FiO2 01/02/25 16:08 95 16 96 Room Air* 0 21 01/02/25 12:45 97.5 137/93 (108) Result Diagram: 01/02/25 0047 01/02/25 0047 Awake cooperative, in NAD HEENT normocephalic atraumatic, EOMI sclera anicteric , conjuctiva pinkish , dry oral mucosa , patient is edentulous Neck supple, no JVD , Chest CTA , has an AICD Heart RRR Abdomen soft ,tender , distended, tympanitic, no BS Extremities no C/C/ 2 + Pitting edema Neuro exam nonfocal Coagulation Studies Laboratory Tests Test 01/02/25 00:47 D-Dimer 4.40 MG/L FEU (0-0.50) H D-Dimer Comment Other Results Medications reviewed Problem\Assessment\Plan 79-year-old male patient with a past medical history of atrial fibrillation, hypertension, COPD # Acute CHF exacerbation - unknown EF, probable right heart heart failure Shortness of breath + severe peripheral edema Chest x-ray: No radiographic evidence of acute cardiopulmonary process. BNP 565, troponins negative Procalcitonin 0.11, lactic acid 3.2 Continue lasix and coreg ,await echo # Abdominal distension Ascites vs ileus / BS Persistent nausea and vomiting # Acute kidney injury BUN 25, creatinine 1.61 # Hypervolemic hyponatremia Na level 129 at the time of admission Continue Lasix IV for treatment of hypervolemia # History of atrial fibrillation Current on sinus rhythm Hold Eliquis in anticipation of Endoscopy in am Continue flecainide # COPD - not on acute exacerbation No wheezing or productive cough Continue Anoro and mometasone Albuterol and ipratropium p.r.n. # Leukocytosis : Likely due to steroids, patient received two doses of solumedrol in the ER # N/V: Continue IV zofran , NGT to LWS # Cirrhosis with portal hypertension: Discussed with Dr. Zuniga. Will keep him NPO , Likely endoscopic evaluation in am Code Status: Full code DVT prophylaxis: SCD Analgesia/sedation: Morphine Line/tube: PIV GI prophylaxis: Omeprazole Nutrition: NPO Prognosis: Guarded Date of Service: Jan 02, 2025 Billing Provider: ELVA MARTINEZ MD Common Visit Codes: [id number] INP/OBS CARE(HIGH) ELVA MARTINEZ MD Jan 02, 2025 17:01
--- NOTE | 2025-01-02 18:08 | RADIOLOGY REPORT ---
EXAM: DI ABDOMEN,SINGLE VIEW(KUB) HISTORY: NG tube placement COMPARISON: US ULTRASOUND OF ABDOMEN on DOS: 01/02/25, CT CT ABDOMEN PELVIS on DOS: 01/02/25 TECHNIQUE: Single AP of the abdomen and pelvis was obtained. Findings: Frontal view of the abdomen demonstrates gaseous distended loops of bowel. No visualized renal calcul i. There is no evidence of an acute fracture, dislocation, blastic, or lytic lesions. The visualized portions of the lung bases are unremarkable. Enteric tube is overlying the plane of the stomach. No superficial soft tissue abnormalities. Impression: 1. Gaseous distended loops of bowel, nonspecific. 2. Enteric tube is overlying the plane of the stomach.
[2025-01-02] MEDS: CefTRIAXone/D5W-Rocephin 1gm 50 ML IV SCH (18:48)
[2025-01-02 20:15] VITALS: RESP 20; O2SAT 93
[2025-01-02] MEDS: doxepin 10mg capsule PO SCH (20:15)
[2025-01-02 22:07] VITALS: BP 125/77; PULSE 102; RESP 15; TEMP 96.8; O2SAT 96
[2025-01-02 23:02] VITALS: PULSE 92; RESP 15; O2SAT 95
[2025-01-03] VITALS (12 sets, daily range): BP systolic 100–130; BP diastolic 66–79; PULSE 85–97; RESP 10–20; TEMP 97.3–98.1; O2SAT 93–99
--- NOTE | 2025-01-03 00:33 | RADIOLOGY REPORT ---
Exam: DI ABDOMEN,SINGLE VIEW(KUB) Indication: NG Placement Comparison: DI ABDOMEN,SINGLE VIEW(KUB) on DOS: 01/02/25, US ULTRASOUND OF ABDOMEN on DOS: 01/02/25, CT C T ABDOMEN PELVIS on DOS: 01/02/25 Technique: 2 radiographic views of the abdomen. Findings: Similar orientation of the enteric tube, with side port and tip overlying the left upper quadrant dis dana to the diaphragmatic hiatus. Similar degree of gas distended bowel loops in the imaged upper abdo men. No other interval change. Impression: 1. Similar enteric tube positioning to the recent prior exam.
[2025-01-03 05:46] LABS: MEAN PLATELET VOLUME 8.4 FL (7.4-10.4); RED CELL DISTRIBUTION WIDTH 15.3 % (11.5-14.5)
[2025-01-03 05:58] LABS: CREATININE 1.84 MG/DL (0.60-1.10); TOTAL CARBON DIOXIDE 29.7 MMOL/L (24-32); eCRCL 38 ML/MIN; eGFR 35 ML/MIN
[2025-01-03] MEDS: normal saline 500ml IV soln 1,000 ML IV SCH (08:51)
[2025-01-03] MEDS ORDERED: fentaNYL/PF 50MCG/1 ML 2ML syringe ONE (10:11)
[2025-01-03] MEDS ORDERED: LIDOcaine 2% (20mg/ml) 5ml vial ONE (10:11)
[2025-01-03] MEDS ORDERED: propofol inj 20 ML IV ONE (10:21)
[2025-01-03 12:18] LABS: CHOL/HDL RATIO 3.6 (0.00-4.99); LDL CHOLESTEROL 93 MG/DL (50-100)
[2025-01-03 12:27] LABS: % IRON SATURATION 41 % (11-46)
--- NOTE | 2025-01-03 13:13 | PROCEDURE NOTE CC ---
Procedure Note CC Providers to CC ~ Procedure Name: Paracentesis Description: Time-out: Done Consent: Pt Site: LLQ Anesthesia: Local Technique: US guided Fluid: 3500ml yellow fluid. Sample sent to lab Complication: None Sepsis Screening Reassessment Date: Jan 03, 2025 ITZEL SHEETS MD Jan 03, 2025 13:13
[2025-01-03 13:32] LABS: GLUCOSE,BODY FLUID 128 MG/DL; LDH,BODY FLUID 53 U/L
[2025-01-03 13:34] LABS: TOTAL PROTEIN,BODY FLUID < 2.0 G/DL
[2025-01-03 13:42] LABS: BF MESOTHELIAL CELLS MODERATE; BF RBC COUNT 79 /CU MM; BF WBC COUNT 188 /CU MM (0-1000); BFAPPEAR CLEAR; BFCOLOR YELLOW; BFSOURCE ASCITES FLD; BFVOLUME 44 ML; LYMPHOCYTES,BODY FLUID 22 %; MONOCYTES,BODY FLUID 71 %; NEUTROPHILS,BODY FLUID 7 %
--- NOTE | 2025-01-03 13:51 | RADIOLOGY REPORT ---
PROCEDURE: ULTRASOUND GUIDED PARACENTESIS HISTORY: 79 Male requiring paracentesis. PERFORMING DOCTOR: Dr. SHEETS TECHNIQUE: The risks and benefits of the procedure including but not limited to bleeding, infection and injury t o abdominal organs were explained to the patient and written informed consent was obtained. Optimal site for puncture was determined using ultrasound and the area sterilized and draped. Using a 5 [place] Yueh catheter, paracentesis was performed in the LEFT LOWER abdomen. Approximately 3.5 l iters of clear yellow fluid was removed. The patient tolerated the procedure well. There were no imm ediate complications. IMPRESSION: Ultrasound-guided paracentesis with no immediate complications.
--- NOTE | 2025-01-03 14:26 | CARDIOLOGY REPORT ---
APPROVED REPORT EXAM: Limited 2D and color flow Echocardiogram. Patient Location: ER 2 Blood Pressure: 136/85 mmHg Heart Rate: 91 bpm Rhythm: SINUS Indications CONGESTIVE HEART FAILURE ELEVATED PROBNP (565) ATRIAL FIBRILLATION HYPERTENSION COPD Thermostat Repairer: Jose Goel DO Previous echo: none available (after hours) 2D Dimensions RVDd 3.2 cm CO 3.6 L/min M-Mode Dimensions IVSd 1.00 (0.7-1.1cm) LVDd 3.58 (4.0-5.6cm) PWd 1.42 (0.7-1.1cm) IVSs 1.58 cm LVDs 2.11 (2.0-3.8cm) FS (%) 41 % PWs 1.79 cm ESV(Teich) 14.5 ml LVEF(%) 73 (>50%) LEFT VENTRICLE Small LV size and normal wall thickness. Overall systolic function appears to be normal or hperdynami c. LVEF is 70-75%. RIGHT VENTRICLE RV is normal size and function. Thickened RV free wall. Pacemaker wire in right heart. AORTIC VALVE Probably trileaflet AV appears grossly normal without gross stenosis or insufficiency. MITRAL VALVE MV appears grossly normal with trace regurgitation. TRICUSPID VALVE TV appears grossly normal with trace regurgitation. PERICARDIUM Normal pericardium. No effusion. Left pleural effusion is present. Other Information Study Quality: Technically limited due to body habitus and lung disease. No parasternal or apical win alia.
--- NOTE | 2025-01-03 17:53 | CONSULTATION REPORT - RESIDENT ---
Consult Providers to CC Resident Creating Document: STALINJESSICALEXISTutuVICK ESCOBAR History of Present Illness Reason for Admit\Complaint: Shortness of breaths History of Present Illness Reason for consultation: Abdominal distention with evidence of hepatic cirrhosis on imaging This is an 79-year-old male with a past medical history of atrial fibrillation, hypertension, and COPD who presented with progressive shortness of breath, lower extremity edema, abdominal distension, nausea, and vomiting. The patient reports that his abdominal bloating and leg swelling began approximately one month ago. He denies abdominal pain, hematemesis, melena, hematochezia, changes in bowel habits, or known liver disease. Last bowel movement was the day prior to admission and was normal. No prior history of jaundice, alcohol use, or known hepatitis. The patient is a poor historian, so additional details were obtained from his . She confirmed that he had been in his usual state of health until about a month ago when she began noticing progressive abdominal fullness and generalized swelling. He has never undergone an upper endoscopy (EGD), but did have a screening colonoscopy three years ago, which was reportedly normal. On presentation, physical exam revealed abdominal distension without fluid wave, although imaging (CT abdomen and RUQ ultrasound) confirmed the presence of moderate ascites and features of cirrhosis. Labs revealed mildly elevated liver enzymes (AST 50, ALT 38), elevated bilirubin (2.4), alkaline phosphatase (184), and hypoalbuminemia (2.9). Echocardiogram showed a hyperdynamic left ventricular ejection fraction (75%), and there is concern for possible high-output cardiac state or right heart congestion. Chest imaging showed no acute cardiopulmonary process. BNP was 565; troponins and procalcitonin were negative. Allergies: Coded Allergies: No Known Allergies (Unverified , 01/01/25) Home Medications Home Medications Active Reported Eliquis (Apixaban) 5 Mg Tablet 1 Tab PO DAILY 30 Days Meclizine HCl 25 Mg Tablet 1 Tab PO Q12H Furosemide 20 Mg Tablet 1 Tab PO DAILY Magnesium (Magnesium Oxide) Unknown Strength Capsule Unknown Dose PO DAILY Omeprazole 20 Mg Capsule.dr 1 Cap PO DAILY Vitamin D (Cholecalciferol) 2,000 Unit Tablet 1 Tab PO DAILY Anoro Ellipta 62.5-25 Mcg INH (Umeclidinium Brm/Vilanterol Tr) 1 Each Disk.w.dev Amlodipine Besylate 5 Mg Tablet 1 Tab PO DAILY Flecainide Acetate 100 Mg Tablet 1 Tab PO BID Doxepin HCl 10 Mg Capsule 1 Cap PO HS Asmanex (Mometasone Furoate) 220 Mcg Aer.pow.ba 1 Puffs Past Medical History Past Medical History AFib Hypertension COPD Past Surgical History Surgical History Comment Appendectomy Past Social History Social History Comment Denied illicit drug use, admits to occasional alcohol use Quit smoking a year ago, admits to smoking of about half pack of cigarettes in the past 30 years. ROS ROS Reviewed in full. All negative except for pertinent positive HPI. Exam Vitals: Vital Signs Date Time Temp Pulse Resp B/P (MAP) Pulse Ox O2 Delivery O2 Flow Rate FiO2 01/03/25 12:59 97 16 100/71 (81) 97 Room Air 01/03/25 12:23 0 21 01/03/25 09:37 98.0 General: Awake , alert, and oriented x4, resting comfortably in the bed, in no acute distress HEENT: Atraumatic, normocephalic, EOMI, anicteric sclera ; pink conjunctiva Neck: Trachea midline. Supple, full range of motion, no JVD Cardiac: Regular rhythm, regular rate with no murmurs all over the precordium. Respiratory: Equal breath sounds bilaterally, no tachypnea, no wheezing ,rub or rales, Chest wall is symmetric and without deformity. Gastrointestinal: Abdominal contour: Abdominal distention noted Skin abnormalities: No scars, striae, spider angioma present all over the abdomen Engorged veins: No engorged veins Fluid wave: Negative Shifting dullness: Present, reperfusion showed tympanic indicating fluid shift Bowel sounds: Resident Musculoskeletal: 4+ pitting edema, Neurological: Speech is clear, alert, and oriented x 4. No motor or sensory deficit, deep tendon reflexes normal, cerebellar intact. Cranial nerves II-XII intact. Skin: Warm and dry Diagnostic Data Last Recorded Lab Results: 01/03/2551601/03/25516 Diagnostic Data: Laboratory Tests Test 01/02/25 00:47 D-Dimer 4.40 MG/L FEU (0-0.50) H D-Dimer Comment Additional Plan 1.New-onset Ascites Confirmed by CT and ultrasound. Most consistent with portal hypertension, likely due to underlying cirrhosis, though right heart failure may also contribute. No signs of peritonitis or GI bleeding. Plan: Ordered diagnostic paracentesis : total protein, cell count with differential, gram stain, and cultures. Initiate salt-restricted diet (<2g/day). Gentle diuresis with Lasix 20 mg IV b.i.d. Spironolactone 50 mg bid, monitor electrolytes and renal function closely titrate to maximum of 80 mg a day of Lasix and 350 mg a day of Spirolonolactone with close attention to potassium levels 2. Hepatic Cirrhosis No prior diagnosis, now diagnosed based on imaging studies and labs. No known risk factors (no alcohol, no viral history). 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 Hepatitis B and C serologies Iron panel, ferritin, transferrin saturation NEW, Ceruloplasmin, alpha-1 antitrypsin level Coagulation profile 3.Portal Hypertension (Suspected) Ascites and imaging studies suggest portal hypertension. No prior EGD; patient has never been screened for varices. Plan: EGD recommended. The risks and benefits of bleeding and perforation and add need for surgical intervention in the event of fatigue complication were explained to the patient, patient understands and wishes to proceed. EGD was performed and showed no esophageal or gastric varices, there was endoscopic findings consistent with portal hypertensive gastropathy. No primary prophylaxis needed, though currently he is on carvedilol for many cardiac condition (may provide some benefit). 4.Hyperdynamic Cardiac State / Possible Right Heart Failure EF 75% on echo raises concern for high-output physiology (cirrhosis, anemia, AV shunting). Right-sided contribution to ascites and edema not excluded. Plan: Continue coordination with cardiology. Follow up with the echo Volume management cautiously, balancing renal function and hemodynamics. 5.Nutrition & Functional Status Hypoalbuminemia and new edema due to synthetic function failure of the liver. Plan: Consult nutrition Encourage 20 g protein, low-sodium diet as tolerated. Monitor for signs of hepatic encephalopathy Tavon Knox MD Internal Medicine Resident, PGY-2 Date of Service: Jan 04, 2025 Billing Provider: GEO HUMMEL MD, GAURAV, RES Jan 03, 2025 17:53 GEO HUMMEL MD Jan 04, 2025 15:25
[2025-01-03] MEDS: albumin (Human) 5% 250ml 250 ML IV ONE (19:22)
[2025-01-04 05:37] LABS: MEAN PLATELET VOLUME 8.1 FL (7.4-10.4); RED CELL DISTRIBUTION WIDTH 15.1 % (11.5-14.5)
[2025-01-04 05:56] LABS: CREATININE 1.45 MG/DL (0.60-1.10); TOTAL CARBON DIOXIDE 31.7 MMOL/L (24-32); eCRCL 48 ML/MIN; eGFR 47 ML/MIN
[2025-01-04 06:00] VITALS: BP 130/83; PULSE 74; RESP 18; TEMP 97; O2SAT 96
[2025-01-04 08:47] VITALS: PULSE 130; RESP 16; O2SAT 96
[2025-01-04 10:00] VITALS: BP 91/64; PULSE 101; RESP 16; TEMP 98; O2SAT 97
[2025-01-04 15:03] LABS: INR 1.3 INR
--- NOTE | 2025-01-04 16:25 | PROGRESS NOTE- Residence ---
Progress Note - Resident Providers to CC Resident Creating Document: SHAWN KNOX RES ~ Antibiotic Timeout Antibiotic Ordered?: No Subjective Patient was seen and examined at bedside, patient improved symptomatically Objective Vital Signs Date Time Temp Pulse Resp B/P (MAP) Pulse Ox O2 Delivery O2 Flow Rate FiO2 01/04/25 10:00 98.0 101 16 91/64 (73) 97 Room Air 01/04/25 08:47 0 21 Result Diagram: 01/04/25 0452 01/04/25 0452 Awake , alert, and oriented x4, resting comfortably in the bed, in no acute distress HEENT: Atraumatic, normocephalic, EOMI, anicteric sclera ; pink conjunctiva Neck: Trachea midline. Supple, full range of motion, no JVD Cardiac: Regular rhythm, regular rate with no murmurs all over the precordium. Respiratory: Equal breath sounds bilaterally, no tachypnea, no wheezing ,rub or rales, Chest wall is symmetric and without deformity. Gastrointestinal: Abdominal contour: Abdominal distention improved Skin abnormalities: No scars, striae, spider angioma present all over the abdomen Engorged veins: No engorged veins Fluid wave: Negative Shifting dullness: Present, reperfusion showed tympanic indicating fluid shift Bowel sounds: Present Musculoskeletal: 2+ pitting edema, Neurological: Speech is clear, alert, and oriented x 4. No motor or sensory deficit, deep tendon reflexes normal, cerebellar intact. Cranial nerves II-XII intact. Skin: Warm and dry Coagulation Studies Laboratory Tests Test 01/02/25 00:47 01/04/25 14:41 D-Dimer 4.40 MG/L FEU (0-0.50) H D-Dimer Comment Prothrombin Time 12.7 SECONDS (9.0-12.0) H INR International Normalized Ratio 1.3 INR Coagulation Comments Advance Care Planning Advanced Care plannin - 30 Minutes Plan Plan 1. New-Onset Ascites Confirmed on CT and ultrasound. Diagnostic paracentesis on 01/03/25 revealed: SAAG > 1.1 (albumin gradient not shown but inferred from low ascitic protein + clinical context) Low total protein (<2.0 g/dL) consistent with portal hypertension-related transudative ascites WBC: 188/L with 7% neutrophils not diagnostic for spontaneous bacterial peritonitis (SBP) Glucose: 128 mg/dL not suggestive of bacterial infection No organisms seen; culture pending Plan: Continue sodium restriction <2g/day Maintain current diuretic regimen: Furosemide 20 mg IV BID Spironolactone 50 mg PO BID, titrate as tolerated Monitor daily weights, strict I/O Trend renal function, electrolytes (monitor for hypokalemia, hyponatremia, azotemia) Follow up on ascitic cultures, AFB, cytology Monitor for recurrence of tense ascites or signs of SBP 2. Portal Hypertension (Secondary to Cirrhosis) Likely diagnosis based on: New ascites with SAAG >1.1 Imaging with cirrhotic morphology EGD findings of portal hypertensive gastropathy No prior diagnosis of liver disease Plan: EGD performed on Day 1: No varices, but portal gastropathy present no need for variceal prophylaxis at this time Patient is already on carvedilol (for cardiac indications), which may provide some protective benefit against portal pressures No need to initiate non-selective beta-blockers purely for variceal prophylaxis Continue to monitor for GI bleeding Long-term: consider variceal screening every 23 years if liver disease remains compensated 3. 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 Hyperdynamic Cardiac State / Possible Right Heart Failure Contribution Echocardiogram: EF 75%, suggests high-output physiology (possible causes: cirrhosis, anemia, AV shunting) No clear signs of right-sided failure, but cannot be excluded as contributor to ascites/edema Plan: Continue carvedilol Avoid aggressive diuresis in case of preload dependency Coordinate with cardiology Evaluate for other high-output states if clinically indicated 5. Acute Kidney Injury (now improving) 6. Malnutrition / Low Protein State 7. Infectious Workup Per primary team Shawn Knox MD Internal Medicine Resident, PGY-2 Date of Service: Jan 05, 2025 Billing Provider: GEO HUMMEL MD, GAURAV, RES Jan 04, 2025 16:25
--- NOTE | 2025-01-04 16:58 | PROGRESS NOTE ---
Daily Progress Note Providers to CC ~ Antibiotic Timeout Antibiotic Ordered?: No Objective Vital Signs Date Time Temp Pulse Resp B/P (MAP) Pulse Ox O2 Delivery O2 Flow Rate FiO2 01/04/25 10:00 98.0 101 16 91/64 (73) 97 Room Air 01/04/25 08:47 0 21 Result Diagram: 01/04/25 0452 01/04/25 0452 Awake cooperative, in NAD HEENT normocephalic atraumatic, EOMI sclera anicteric , conjuctiva pinkish , dry oral mucosa , patient is edentulous Neck supple, no JVD , Chest CTA , has an AICD Heart RRR Abdomen soft ,tender , distended, tympanitic, no BS Extremities no C/C/ 2 + Pitting edema Neuro exam nonfocal Coagulation Studies Laboratory Tests Test 01/02/25 00:47 01/04/25 14:41 D-Dimer 4.40 MG/L FEU (0-0.50) H D-Dimer Comment Prothrombin Time 12.7 SECONDS (9.0-12.0) H INR International Normalized Ratio 1.3 INR Coagulation Comments Other Results Medications reviewed Problem\Assessment\Plan 79-year-old male patient with a past medical history of atrial fibrillation, hypertension, COPD # nausea/vomiting/Abdominal distension likely due to ileus: Patient underwent NG tube placement with nearly 1200 cc of aspirate. Patient pulled out his NG tube. Presently nausea and vomiting is much improved. Try clear liquids. # Acute kidney injury: Continue monitor. If gets worse, we will start on IV fluids. # hyponatremia: Likely due to fluid overload. Continue monitor # History of atrial fibrillation : Current on sinus rhythm . Continue flecainide Eliquis was on hold due to GI bleed. # COPD - not on acute exacerbation. Inhaled bronchodilators as needed # Leukocytosis : Likely due to steroids, patient received two doses of solumedrol in the ER # N/V: Continue IV zofran , NGT to LWS # Cirrhosis with portal hypertension: Patient underwent EGD and paracentesis. Code Status: Full code DVT prophylaxis: SCD Analgesia/sedation: Morphine Line/tube: PIV GI prophylaxis: Omeprazole Nutrition: NPO Prognosis: Guarded Disposition: Start on clear liquid diet advance as tolerated. Likely home in 1-2 days. Date of Service: Jan 04, 2025 Billing Provider: ELVA MARTINEZ MD Common Visit Codes: [id number] INP/OBS CARE(HIGH) ELVA MARTINEZ MD Jan 04, 2025 16:58
[2025-01-04] MEDS ORDERED: albumin (human) 25% 100 ML IV solution IV ONE (17:05)
--- NOTE | 2025-01-04 17:11 | Visit Coding Note ---
Date of Service: Jan 03, 2025 Billing Provider: ELVA MARTINEZ MD Common Visit Codes: [id number] INP/OBS CARE(HIGH) ELVA MARTINEZ MD Jan 04, 2025 17:11
--- NOTE | 2025-01-04 17:50 | PROGRESS NOTE ---
DATE: 01/03/2025 DICTATING PHYSICIAN: Gordon Monroe MD SUBJECTIVE: No complaints. The patient reports improvement in his nausea. Presently getting a paracentesis. OBJECTIVE: VITAL SIGNS: Temp is 97.3, pulse is 93, respiratory rate is 16, blood pressure is 113/73. HEENT: Normocephalic, atraumatic. Extraocular movements are intact. NECK: Supple. CHEST: Clear to auscultation. No wheezes, crackles, or rhonchi. HEART: Regular rate and rhythm. ABDOMEN: Soft, paracentesis catheter on the left side of the abdomen noted. EXTREMITIES: No cyanosis, clubbing, 1+ edema noted. NEUROLOGIC: Nonfocal. LABORATORY DATA: Iron 53, TIBC 129, percent saturation is 41. Total bilirubin is 2.0, direct bilirubin 1.3, AST 43, ALT is 32, alkaline phosphatase is 151, sodium , potassium 4.0, chloride 94, bicarb is 29.7, BUN is 36, creatinine is 1.84, glucose is 126. ASSESSMENT AND PLAN: An 79-year-old male presented to the ER for evaluation of nausea, vomiting, cough, bilateral lower extremity edema, and shortness of breath. * Nausea/vomiting: Probable ileus. The patient underwent an NG tube placement and 1200 mL aspirated. He has had emesis with 500 mL. The patient pulled his NG tube out last night. Continue monitor. Keep n.p.o. * Hepatic cirrhosis with ascites: Undergoing paracentesis. * CHF with preserved EF: Echocardiogram shows an EF of 70%-75%. Continue Lasix as needed. * BENJAMIN: Likely due to vasomotor nephropathy, intravascular volume depletion. Gentle hydration. * Hypervolemic hyponatremia: Continue to monitor sodium. * History of AFib: Sinus rhythm. Continue flecainide and Eliquis. * COPD without exacerbation: Inhaled bronchodilators p.r.n. CODE STATUS: Full code. Gordon Monroe MD TID: [id number] RECEIPT: [id number] /MARILYN
[2025-01-04 18:00] VITALS: BP 95/70; PULSE 77; RESP 16; TEMP 97.6; O2SAT 96
[2025-01-04] MEDS: albumin (human) 25% 100ml IV 100 ML IV ONE (18:17)
[2025-01-04] MEDS: pantoprazole 40mg Tablet.DR PO SCH (20:21)
[2025-01-04 20:30] VITALS: RESP 16; O2SAT 96
[2025-01-04 22:00] VITALS: BP 114/71; PULSE 52; RESP 15; TEMP 98.1; O2SAT 93
[2025-01-05 06:00] VITALS: BP 108/62; PULSE 65; RESP 15; TEMP 97.5; O2SAT 96
[2025-01-05 06:17] LABS: MEAN PLATELET VOLUME 8.0 FL (7.4-10.4); RED CELL DISTRIBUTION WIDTH 15.2 % (11.5-14.5)
[2025-01-05 06:26] LABS: CREATININE 1.27 MG/DL (0.60-1.10); TOTAL CARBON DIOXIDE 29.8 MMOL/L (24-32); eCRCL 55 ML/MIN; eGFR 54 ML/MIN
[2025-01-05 10:00] VITALS: BP 104/74; PULSE 76; RESP 14; TEMP 97.7; O2SAT 94
[2025-01-05] MEDS ORDERED: magnesium Cl slow-release 64mg tablet PO PRN (10:25)
[2025-01-05] MEDS ORDERED: magnesium sulf-water 2g/50mL 50 ML IV PRN (10:25)
[2025-01-05] MEDS ORDERED: potassium Cl 40MEQ/1/2NS 520ml 520 ML IV PRN (10:25)
[2025-01-05] MEDS ORDERED: magnesium sulf-water 4G/100mL 100 ML IV PRN (10:25)
[2025-01-05] MEDS: potassium Cl 20 mEq SR tablet PO PRN ×2 (11:07→20:00)
[2025-01-05 11:12] LABS: GAMMA GLUTAMLY TRANSPEPTIDASE 55 IU/L (0-65)
[2025-01-05 13:12] LABS: AFP,SERUM, TUMOR MARKER 2.3 ng/mL (0.0-6.4)
--- NOTE | 2025-01-05 14:55 | PROGRESS NOTE ---
Daily Progress Note Providers to CC ~ Antibiotic Timeout Antibiotic Ordered?: Yes Subjective Patient has no new complaints. Seen resting comfortably. Sitting at the bedside chair. at bedside. Patient states he does not want to go to a longterm facility however states patient has to go to a longterm facility as she is unable to care for him at home. Objective Vital Signs Date Time Temp Pulse Resp B/P (MAP) Pulse Ox O2 Delivery O2 Flow Rate FiO2 01/05/25 10:00 97.7 76 14 104/74 (84) 94 Room Air 01/04/25 08:47 0 21 Result Diagram: 01/05/2552101/05/25521 Awake cooperative, in NAD HEENT normocephalic atraumatic, EOMI sclera anicteric , conjuctiva pinkish , dry oral mucosa , patient is edentulous Neck supple, no JVD , Chest CTA , has an AICD Heart RRR, murmur audible Abdomen soft ,tender , distended, bowel sounds audible. Extremities no C/C/ 2 + Pitting edema Neuro exam nonfocal Coagulation Studies Laboratory Tests Test 01/02/25 00:47 01/04/25 14:41 D-Dimer 4.40 MG/L FEU (0-0.50) H D-Dimer Comment Prothrombin Time 12.7 SECONDS (9.0-12.0) H INR International Normalized Ratio 1.3 INR Coagulation Comments Other Results Medications reviewed Problem\Assessment\Plan 79-year-old male patient with a past medical history of atrial fibrillation, hypertension, COPD # nausea/vomiting/Abdominal distension likely due to ileus: Patient underwent NG tube placement with nearly 1200 cc of aspirate. Patient pulled out his NG tube. Presently nausea and vomiting is much improved. Tolerating diet. # Acute kidney injury: Continue monitor. Creatinine is trending down. Likely due to intravascular volume depletion and poor renal perfusion. # hyponatremia: Likely due to fluid overload. Continue monitor # hypokalemia: Replace per protocol # History of atrial fibrillation : Continue flecainide Eliquis was on hold due to GI bleed. # COPD - not on acute exacerbation. Inhaled bronchodilators as needed # Leukocytosis : Likely due to steroids, patient received two doses of solumedrol in the ER # N/V: Continue IV zofran , NGT to LWS # Cirrhosis with portal hypertension: Patient underwent EGD and paracentesis. Code Status: Full code DVT prophylaxis: SCD Disposition: Await longterm facility placement. Date of Service: Jan 05, 2025 Billing Provider: ELVA MARTINEZ MD Common Visit Codes: [id number] INP/OBS CARE(HIGH) ELVA MARTINEZ MD Jan 05, 2025 14:55
[2025-01-05 15:15] LABS: ANTINUCLEAR ANTIBODIES Negative (Negative)
[2025-01-05 18:00] VITALS: BP 114/77; PULSE 65; RESP 17; TEMP 97.3; O2SAT 99
--- NOTE | 2025-01-05 18:57 | PROGRESS NOTE- Residence ---
Progress Note - Resident Providers to CC Resident Creating Document: SHAWN [facility]NOX RES ~ Antibiotic Timeout Antibiotic Ordered?: No Subjective Patient was seen and examined at bedside, patient improved symptomatically Objective Vital Signs Date Time Temp Pulse Resp B/P (MAP) Pulse Ox O2 Delivery O2 Flow Rate FiO2 01/05/25 10:00 97.7 76 14 104/74 (84) 94 Room Air 01/04/25 08:47 0 21 Result Diagram: 01/05/25 0522 01/05/25 0522 Awake , alert, and oriented x4, resting comfortably in the bed, in no acute distress HEENT: Atraumatic, normocephalic, EOMI, anicteric sclera ; pink conjunctiva Neck: Trachea midline. Supple, full range of motion, no JVD Cardiac: Regular rhythm, regular rate with no murmurs all over the precordium. Respiratory: Equal breath sounds bilaterally, no tachypnea, no wheezing ,rub or rales, Chest wall is symmetric and without deformity. Gastrointestinal: Abdominal contour: Abdominal distention improved Skin abnormalities: No scars, striae, spider angioma present all over the abdomen Engorged veins: No engorged veins Fluid wave: Negative Shifting dullness: Present, reperfusion showed tympanic indicating fluid shift Bowel sounds: Present Musculoskeletal: 2+ pitting edema, Neurological: Speech is clear, alert, and oriented x 4. No motor or sensory deficit, deep tendon reflexes normal, cerebellar intact. Cranial nerves II-XII intact. Skin: Warm and dry Coagulation Studies Laboratory Tests Test 01/02/25 00:47 01/04/25 14:41 D-Dimer 4.40 MG/L FEU (0-0.50) H D-Dimer Comment Prothrombin Time 12.7 SECONDS (9.0-12.0) H INR International Normalized Ratio 1.3 INR Coagulation Comments Plan Plan 1. New-Onset Ascites Confirmed on CT and ultrasound. Diagnostic paracentesis on 01/03/25 revealed: SAAG > 1.1 (albumin gradient not shown but inferred from low ascitic protein + clinical context) Low total protein (<2.0 g/dL) consistent with portal hypertension-related transudative ascites WBC: 188/L with 7% neutrophils not diagnostic for spontaneous bacterial peritonitis (SBP) Glucose: 128 mg/dL not suggestive of bacterial infection No organisms seen; culture pending Plan: Continue sodium restriction <2g/day Maintain current diuretic regimen: Furosemide 20 mg IV BID Spironolactone 50 mg PO BID, titrate as tolerated Monitor daily weights, strict I/O Trend renal function, electrolytes (monitor for hypokalemia, hyponatremia, azotemia) Follow up on ascitic cultures, AFB, cytology Monitor for recurrence of tense ascites or signs of SBP 2. Portal Hypertension (Secondary to Cirrhosis) Likely diagnosis based on: New ascites with SAAG >1.1 Imaging with cirrhotic morphology EGD findings of portal hypertensive gastropathy No prior diagnosis of liver disease Plan: EGD performed on Day 1: No varices, but portal gastropathy present no need for variceal prophylaxis at this time Patient is already on carvedilol (for cardiac indications), which may provide some protective benefit against portal pressures No need to initiate non-selective beta-blockers purely for variceal prophylaxis Continue to monitor for GI bleeding Long-term: consider variceal screening every 23 years if liver disease remains compensated 3. 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 Hyperdynamic Cardiac State / Possible Right Heart Failure Contribution Echocardiogram: EF 75%, suggests high-output physiology (possible causes: cirrhosis, anemia, AV shunting) No clear signs of right-sided failure, but cannot be excluded as contributor to ascites/edema Plan: Continue carvedilol Avoid aggressive diuresis in case of preload dependency Coordinate with cardiology Evaluate for other high-output states if clinically indicated 5. Acute Kidney Injury (now improving) 6. Malnutrition / Low Protein State 7. Infectious Workup Per primary team GI signing off, reconsult if any acute emergencies arise. Shawn Knox MD Internal Medicine Resident, PGY-2 Date of Service: Jan 05, 2025 Billing Provider: GEO HUMMEL MD, GAURAV, RES Jan 05, 2025 18:57
[2025-01-05 20:00] VITALS: BP 123/66; PULSE 65; RESP 17; O2SAT 99
[2025-01-05] MEDS: K and/or MAG REPLACEMENT MC SCH (20:03)
[2025-01-05 22:00] VITALS: BP 115/74; PULSE 63; RESP 20; TEMP 98.2; O2SAT 94
[2025-01-06 05:14] LABS: HBSAG SCREEN Negative (Negative); HEPATITIS C VIRUS ANTIBODY Non Reactive (Non Reactive)
[2025-01-06 06:48] VITALS: BP 123/69; PULSE 62; RESP 16; TEMP 97.7; O2SAT 91
[2025-01-06 07:29] LABS: MEAN PLATELET VOLUME 8.3 FL (7.4-10.4); RED CELL DISTRIBUTION WIDTH 14.6 % (11.5-14.5)
[2025-01-06 07:44] LABS: CREATININE 1.29 MG/DL (0.60-1.10); TOTAL CARBON DIOXIDE 30.2 MMOL/L (24-32); eCRCL 54 ML/MIN; eGFR 53 ML/MIN
[2025-01-06 09:07] VITALS: PULSE 92; RESP 18; O2SAT 93
[2025-01-06 10:14] VITALS: BP 124/84; PULSE 73; RESP 16; TEMP 97.4; O2SAT 96
--- NOTE | 2025-01-06 12:43 | DISCHARGE SUMMARY ---
Discharge Summary Providers to CC ~ Discharge Summary Admission Diagnosis: SOB Hospital Course DATE OF ADMISSION: 01/01/2025 DATE OF DISCHARGE:01/06/2025 Discharge Diagnosis\Comment: Ileus Probable SBP N/V Cirrhosis with Ascites Operations\Procedures: Paracenteis Consultants: RADHA Zuniga Complications: None Condition on DC: Stable Discharge Summary: Reason for admission 79-year-old male patient with a past medical history of atrial fibrillation, hypertension, COPD presented to the ER for evaluation of shortness of breath. Please refer to admission H&P for more details. Hospital course: Patient was admitted on the monitored floor under hospital course as follows. # nausea/vomiting/Abdominal distension likely due to ileus: Patient underwent NG tube placement with nearly 1200 cc of aspirate. Patient pulled out his NG tube. His nausea and vomiting resolved and patient was able to tolerate diet. # Acute kidney injury: Due to poor renal perfusion and intravascular volume depletion. Vasomotor nephropathy. Creatinine has trended down. # hyponatremia: Likely due to fluid overload. Remained stable # hypokalemia: Replaced per protocol # History of atrial fibrillation : Continued flecainide Eliquis was on hold due to GI bleed which has been resumed. # COPD - not on acute exacerbation. Patient treated with Inhaled bronchodilators as needed # Leukocytosis : Likely due to steroids, patient received two doses of solumedrol in the ER blood counts were monitored and trended down. # Cirrhosis with portal hypertension: Patient underwent EGD and paracentesis. Total Time Spent on D/C: > 30 Minutes ELVA MARTINEZ MD Jan 06, 2025 12:42
[2025-01-06] MEDS: lactose-reduced food (Ensure Enlive) - 237ml bottle PO SCH (13:00)
== END 2025-01-06 17:00 | DRG 432 ==
LOC: ER 18:20 → ED HOLD 23:35 → ORTHO 4S 01-02 12:40
PROVIDERS: ADMIT Internal Medicine; ATTEND Internal Medicine
PROC: 0D9670Z Drainage of Stomach with Drainage Device, Via Natural or Artificial Opening (ICD-10-PCS; 2025-01-02)
PROC: 0DB68ZX Excision of Stomach, Via Natural or Artificial Opening Endoscopic, Diagnostic (ICD-10-PCS; 2025-01-03)
PROC: 0W9G3ZZ Drainage of Peritoneal Cavity, Percutaneous Approach (ICD-10-PCS; principal; 2025-01-03 10:03)
DX: K74.60 Unspecified cirrhosis of liver (principal); K65.2 Spontaneous bacterial peritonitis; N17.0 Acute kidney failure with tubular necrosis; K56.7 Ileus, unspecified; E87.1 Hypo-osmolality and hyponatremia; R18.8 Other ascites; K76.6 Portal hypertension; E46 Unspecified protein-calorie malnutrition; I50.9 Heart failure, unspecified; I11.0 Hypertensive heart disease with heart failure; K25.9 Gastric ulcer, unspecified as acute or chronic, without hemorrhage or perforation; J44.9 Chronic obstructive pulmonary disease, unspecified; I48.91 Unspecified atrial fibrillation; K31.89 Other diseases of stomach and duodenum; D72.829 Elevated white blood cell count, unspecified; T38.0X5A Adverse effect of glucocorticoids and synthetic analogues, initial encounter; E87.6 Hypokalemia; Z79.01 Long term (current) use of anticoagulants; Z79.899 Other long term (current) drug therapy; Z90.49 Acquired absence of other specified parts of digestive tract; Y92.89 Other specified places as the place of occurrence of the external cause; Z68.23 Body mass index [BMI] 23.0-23.9, adult
CPT/HCPCS: 36415; 43239; 49083; 71045; 74018; 74176; 76700; 80053; 80061; 80076; 81003; 82103; 82140; 82570; 82945; 82977; 83540; 83550; 83605; 83615; 83690; 83735; 83880; 83930; 83935; 84133; 84145; 84157; 84300; 84484; 84540; 85025; 85379; 85610; 86038; 86140; 86803; 87040; 87070; 87075; 87081; 87340; 87522; 88305; 88342; 89051; 93005; 93308; 94760; 96374; 96375; 97116; 97161; 97530; 99285; A4620; A6213; A6250; A6449; C1729; G0378; J0696; J1938; J2003; J2405; J2470; J2704; J2919; J3010; J7030; J7040; P9045; P9047

== ENCOUNTER 2025-01-07 16:42 | Emergency (ER) | payer OTHER ==
[~2025-01-07] VITALS: Ht 193 cm; Wt 86.7 kg
[~2025-01-07 16:42] MED LIST changes: +APIX5TAB3 PO; +FURO20TA4 PO; +MECL-302 PO; -WARF-55 PO
[2025-01-07 17:25] VITALS: TEMP 98.6
--- NOTE | 2025-01-07 17:29 | ELECTROCARDIOGRAPH REPORT ---
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
[2025-01-07 17:44] VITALS: BP 139/90; PULSE 86; O2SAT 98
[2025-01-07 17:54] LABS: CREATININE 1.18 MG/DL (0.60-1.10); MEAN PLATELET VOLUME 8.0 FL (7.4-10.4); RED CELL DISTRIBUTION WIDTH 14.6 % (11.5-14.5); TOTAL CARBON DIOXIDE 29.3 MMOL/L (24-32); eCRCL 60 ML/MIN; eGFR 59 ML/MIN
[2025-01-07 18:07] VITALS: RESP 16
[2025-01-07 19:07] LABS: APTT 26 SECONDS (22-32); INR 1.2 INR
--- NOTE | 2025-01-07 19:25 | Physician Documentation ---
History of Present Illness Chief Complaint: Abnormal Lab(s) Stated Complaint: LOW SODIUM LEVELS Time Seen by MD: 17:22 Primary Medical Doctor: None Source: patient, family Mode of Arrival: EMS, Stretcher Exam Limitations: no limitations HPI 79-year-old male who arrives by EMS from rehab facility he had just arrived at the rehab facility yesterday however the rehab facility sent him back to the ER today due to his sodium of 122 in his abdomen that was filling back up with fluid per . also states they told me that they are no doctors there on the weekend and that they are not equipped to deal with him and he is dropping sodium levels. Patient was recently diagnosed with cirrhosis and po rtal hypertension of unknown etiology. Patient's according to has no history of alcoholism and the testing done here during his admission was negative for hepatitis as well as some autoimmune testing that was done. Patient has no concerns or complaints. Medication Reconciliation Allergies: Coded Allergies: No Known Allergies (Unverified , 01/01/25) Scheduled Amlodipine Besylate (Amlodipine Besylate), 1 TAB PO DAILY, (Reported) Apixaban (Eliquis), 1 TAB PO DAILY, (Reported) Cholecalciferol (Vitamin D), 1 TAB PO DAILY, (Reported) Doxepin HCl (Doxepin HCl), 1 CAP PO HS, (Reported) Flecainide Acetate (Flecainide Acetate), 1 TAB PO BID, (Reported) Furosemide (Furosemide), 1 TAB PO DAILY, (Reported) Magnesium Oxide (Magnesium), Unknown Dose PO DAILY, (Reported) Meclizine HCl (Meclizine HCl), 1 TAB PO Q12H, (Reported) Omeprazole (Omeprazole), 1 CAP PO DAILY, (Reported) Miscellaneous Medications Mometasone Furoate (Asmanex), 1 PUFFS, (Reported) Umeclidinium Brm/Vilanterol Tr (Anoro Ellipta 62.5-25 Mcg INH), (Reported) Discontinued Medications Warfarin Sodium (Warfarin Sodium), 1 TAB PO DAILY, (Reported) Discontinued Reason: patient no longer taking Past Medical History 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 HEENT: NCAT, EOMI, PERRL, normal oropharynx, moist oral mucosa. No scleral icterus NECK: Supple, trachea midline. CARDIAC: Regular rate and rhythm, no murmurs, rubs, or gallops. Equal distal pulses. No lower extremity edema, cap refill less than 2 seconds. +edema at right forearm. edema is not at antecubital fossa or proximal to this. no erythema. Equal distal radial pulses. RESPIRATORY: Equal breath sounds, clear to auscultation bilaterally, no respiratory distress. GASTROINTESTINAL: +fluid wave but soft, abdomen is not tense, nontender, No guarding or rebound. MUSCULOSKELETAL: Normal range of motion, nontender, no swelling. Normal gait. NEUROLOGICAL: Awake, alert, and oriented x 3. SKIN: Warm/dry, no pallor, no rash. PSYCH: Alert and appropriate. Affect congruent with mood. Speech is clear. Good eye contact. Progress Results/Orders Results/Orders Completed Orders - MELY SANDOVAL Stat Ekg (01/07/25 ) Ammonia (01/07/25 18:23) Pt Inr (01/07/25 18:23) PTT (01/07/25 18:23) Vital Signs 01/07/25 01/07/25 01/07/25 17:25 17:44 18:07 Temp 98.6 Pulse 91 86 Resp 16 16 16 B/P (MAP) 118/86 139/90 (106) Pulse Ox 98 98 O2 Flow Rate 0 0 Laboratory Tests Test 01/07/25 17:34 01/07/25 18:39 01/07/25 18:46 White Blood Count 10.1 Red Blood Count 4.89 Hemoglobin 15.2 Hematocrit 44.1 Mean Corpuscular Volume 90.0 Mean Corpuscular Hemoglobin 31.1 H Mean Corpuscular Hemoglobin Concent 34.6 Red Cell Distribution Width 14.6 H Platelet Count 213 Mean Platelet Volume 8.0 Neutrophils (%) (Auto) 50.8 Lymphocytes (%) (Auto) 34.7 Monocytes (%) (Auto) 12.5 H Eosinophils (%) (Auto) 1.3 Basophils (%) (Auto) 0.7 Neutrophils # (Auto) 5.1 Lymphocytes # (Auto) 3.5 Monocytes # (Auto) 1.3 H Eosinophils # (Auto) 0.1 Basophils # (Auto) 0.1 CBC Comment Sodium Level 126 L Potassium Level 4.0 Chloride Level 92 L Carbon Dioxide Level 29.3 Anion Gap 5 L Blood Urea Nitrogen 26 H Creatinine 1.18 H Estimated GFR/1.73 m2 59 BUN/Creatinine Ratio 22.0 H Glucose Level 106 H Calcium Level 7.9 L Albumin 2.5 L Chemistry Comments Ammonia 20 Prothrombin Time 12.2 H INR International Normalized Ratio 1.2 Activated Partial Thromboplast Time 26 Coagulation Comments Medical Decision Making Differential Dx:Considerations: Include: AAA, Angina/VA, Aortic dissection, Appendicitis, Bowel obstruction, Cholangitis, Cholelithasis, Constipation, Diverticular disease, Esophageal rupture, Esophagitis, Gastritis/PUD, Gastroenteritis, GI hemorrhage, Hernia, Hepatitis, Inflammatory BD, Ischemic bowel, Pancreatitis, Porphyria, Testicular torsion, Trauma, intraabdominal, Urinary obstruction, Urinary tract infection, Urolithiasis, Other Additional Comments patient is not hypoxic, abdomen soft, no indication for emergent paracentesis here in the ER sodium of 126 is close to baseline of 128 when he was discharged yesterday Departure Time of Disposition: 19:25 Disposition: 01 HOME / SELF CARE / HOMELESS Impression: Primary Impression: Hyponatremia Additional Impression: Cirrhosis of liver with ascites Qualified Codes: K74.60 - Unspecified cirrhosis of liver; R18.8 - Other ascites Condition: Stable Discharge Instructions: Hyponatremia, [id number] Additional Instructions: patient appeared to have visual hallucinations thinking that there was a door where the wall was which is why I checked ammonia levels which where normal patient has some ascites but is not more SOB than baseline and his sodium is only 2points lower than it was when he was discharged yesterday there is no indication for inpatient management at this time Referrals: NO PRIMARY CARE PROVIDER (PCP) Education Educated: Patient, Family Educated regarding: diagnosis, treatment, need for follow up Signature Scribe Signature: x Attestation: MELY Landaverde Jan 07, 2025 19:25
== END 2025-01-07 23:07 | disposition home or self-care (01) ==
LOC: ER 16:43
DX: K74.60 Unspecified cirrhosis of liver (principal); R18.8 Other ascites; E87.1 Hypo-osmolality and hyponatremia; J44.9 Chronic obstructive pulmonary disease, unspecified; I48.91 Unspecified atrial fibrillation; Z95.0 Presence of cardiac pacemaker; Z79.899 Other long term (current) drug therapy; Z72.89 Other problems related to lifestyle
CPT/HCPCS: 36415; 80048; 82140; 85025; 85610; 85730; 93005; 99284

== ENCOUNTER 2025-01-19 10:28 | Inpatient (IN) | payer OTHER ==
[~2025-01-19] VITALS: Ht 190.5 cm; Wt 80.0 kg
[2025-01-19 11:16] LABS: MEAN PLATELET VOLUME 7.7 FL (7.4-10.4); RED CELL DISTRIBUTION WIDTH 15.0 % (11.5-14.5)
[2025-01-19] MEDS ORDERED: pantoprazole 40mg IV 80 MG in normal saline 100ml IV soln 100 ML IV ONE (11:20)
[2025-01-19 11:27] LABS: CREATININE 2.25 MG/DL (0.60-1.10); TOTAL CARBON DIOXIDE 31.7 MMOL/L (24-32); eCRCL 29 ML/MIN; eGFR 28 ML/MIN
--- NOTE | 2025-01-19 11:54 | Physician Documentation ---
History of Present Illness General Chief Complaint: Bloody Emesis Stated Complaint: GI BLEED Time Seen by MD: 10:54 Primary Medical Doctor: None History of Present Illness Initial Comments The patient is an 79-year-old male admitted here from 01/01/2025 to 01/06/2025 for nausea and vomiting, acute kidney injury, hyponatremia, hypokalemia with a history of atrial fibrillation (takes Eliquis), cirrhosis with portal hypertension but no varices and COPD who presents today with hematemesis that b gerson this morning as bright red blood and continued to coffee-ground emesis in the emergency department. He underwent EGD during this past admission and was found to have evidence of portal hypertension with ascites (underwent paracentesis) but no varices and no bleeding during this recent admission. His Eliquis was continued. This morning his noted emesis with "bright red blotches of blood. According to the patient's the patient vomits everything he takes in." Medication Reconciliation Allergies: Coded Allergies: No Known Allergies (Unverified , 01/19/25) Scheduled Amlodipine Besylate (Amlodipine Besylate), 1 TAB PO DAILY, (Reported) Apixaban (Eliquis), 1 TAB PO DAILY, (Reported) Cholecalciferol (Vitamin D), 1 TAB PO DAILY, (Reported) Doxepin HCl (Doxepin HCl), 1 CAP PO HS, (Reported) Flecainide Acetate (Flecainide Acetate), 1 TAB PO BID, (Reported) Furosemide (Furosemide), 1 TAB PO DAILY, (Reported) Magnesium Oxide (Magnesium), Unknown Dose PO DAILY, (Reported) Meclizine HCl (Meclizine HCl), 1 TAB PO Q12H, (Reported) Omeprazole (Omeprazole), 1 CAP PO DAILY, (Reported) Miscellaneous Medications Mometasone Furoate (Asmanex), 1 PUFFS, (Reported) Umeclidinium Brm/Vilanterol Tr (Anoro Ellipta 62.5-25 Mcg INH), (Reported) Past Medical History 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 HEENT: Denies hearing loss, sinus pressure or visual changes. Respiratory: Denies cough, shortness of breath or wheezing. Cardiovascular: Denies chest pain, pain while walking (claudication), edema or palpitations. Gastrointestinal: Vomiting, bright red blood this morning and dark vomitus before and after Genitourinary: Denies painful urination (dysuria), excessive amount of urine (polyuria) or urinary frequency. Metabolic/Endocrine: Denies cold intolerance, heat intolerance, excessive thirst (polydipsia) or excessive hunger (polyphagia). Neurological: Denies dizziness, extremity numbness, extremity weakness, headaches, seizures or tremors. Psychiatric: Denies anxiety or depression. Integumentary: Denies breast discharge, breast lump, hives, mole change(s), rash or skin lesion. Musculoskeletal: Denies back pain, joint pain, joint swelling or neck pain. Hematologic: Denies easily bleeding, easily bruises, lymphedema or issues with blood clots. Immunologic: Denies food allergies or seasonal allergies. Physical Exam Physical Exam Vital Signs: Temperature: 97.6, Source: Oral, Heart Rate: 97, Respiratory Rate: 16, BP: 91/62, Pulse Oximetry: 96, Weight: 80.000 Oxygen Flow Rate: 0 Physical Exam Physical Exam Vitals and nursing note reviewed. Constitutional: General: Patient is awake, alert, oriented x 4 in no acute distress and well appearing. Speech is clear and lucid. Appearance: Normal appearance. Patient is not ill-appearing, toxic-appearing or diaphoretic. HENT: Head: Normocephalic and atraumatic. Mouth/Throat: Mouth: Mucous membranes are moist. Pharynx: Oropharynx is clear. Eyes: General: No scleral icterus. Extraocular Movements: Extraocular movements intact. Pupils: Pupils are equal, round, and reactive to light. Neck: Supple, no Kernig or Brudzinski sign. Cardiovascular: Rate and Rhythm: Normal rate and regular rhythm. Heart sounds: No murmur heard. Pulmonary: Effort: No respiratory distress. Breath sounds: No wheezing, rhonchi or rales. Abdominal: General: There is no distension. Palpations: There is no fluid wave, hepatomegaly or mass. Tenderness: There is no abdominal tenderness. There is no guarding. Musculoskeletal: General: No swelling or deformity. Skin: Coloration: Skin is not jaundiced. Findings: No erythema or rash. Neurological: Mental Status: Patient is alert. Progress Results/Orders Results/Orders Orders - JOHAN AGUILERA MD Ammonia (01/19/25 11:02) LA (01/19/25 11:02) Normal Saline 100ml... W/Octreotide Inj. (01/19/25 11:20) Page Hospitalist (01/19/25 11:59) Normal Saline 1000ml (0.9% Sodium Chlori (01/19/25 12:05) Completed Orders - JOHAN AGUILERA MD Cbc/Diff (01/19/25 11:02) CMP (01/19/25 11:02) Hs Troponin I W Calculations (01/19/25 11:02) Lipase (01/19/25 11:02) MG (01/19/25 11:02) Procalcitonin (01/19/25 11:02) Pt Inr (01/19/25 11:02) Type And Screen (01/19/25 11:02) Octreotide Inj. (Sandostatin Inj.) (01/19/25 11:20) Pantoprazole 40mg Iv (Protonix 40mg Iv) (01/19/25 11:30) Hum Prothromb Cplx-Lans (Balfaxar 500 Un (01/19/25 11:45) Ondansetron Inj. (Zofran 4mg/2ml Vial) (01/19/25 12:05) Medications Received in ER Medications (Trade) Dose Ordered Sig/Justine Route PRN Reason Start Time Stop Time Status Last Admin Dose Admin (SandoSTATIN inj.) 100 mcg ONCE ONCE IV 01/19/25 11:20 01/19/25 11:28 DC 01/19/25 12:06 100 MCG (Protonix 40mg IV) 80 mg ONCE ONCE IV 01/19/25 11:30 01/19/25 11:31 DC 01/19/25 11:39 80 MG Vital Signs 01/19/25 10:32 Temp 97.6 Pulse 97 Resp 16 B/P (MAP) 91/62 Pulse Ox 96 O2 Flow Rate 0 Laboratory Tests Test 01/19/25 10:45 White Blood Count 12.9 H Red Blood Count 5.20 Hemoglobin 16.1 Hematocrit 46.6 Mean Corpuscular Volume 89.6 Mean Corpuscular Hemoglobin 31.0 Mean Corpuscular Hemoglobin Concent 34.7 Red Cell Distribution Width 15.0 H Platelet Count 362 Mean Platelet Volume 7.7 Neutrophils (%) (Auto) 75.3 H Lymphocytes (%) (Auto) 16.5 L Monocytes (%) (Auto) 7.5 Eosinophils (%) (Auto) 0 Basophils (%) (Auto) 0.7 Neutrophils # (Auto) 9.7 H Lymphocytes # (Auto) 2.1 Monocytes # (Auto) 1.0 H Eosinophils # (Auto) 0.0 Basophils # (Auto) 0.1 CBC Comment Prothrombin Time 13.5 H INR International Normalized Ratio 1.4 Coagulation Comments Sodium Level 130 L Potassium Level 3.4 L Chloride Level 86 L Carbon Dioxide Level 31.7 Anion Gap 12 Blood Urea Nitrogen 46 H Creatinine 2.25 H Estimated GFR/1.73 m2 28 BUN/Creatinine Ratio 20.4 H Glucose Level 117 H Calcium Level 8.6 Magnesium Level 2.3 Total Bilirubin 2.7 H Aspartate Amino Transf (AST/SGOT) 62 H Alanine Aminotransferase (ALT/SGPT) 31 Alkaline Phosphatase 152 H Ammonia 19 Troponin I High Sensitivity 337 *H Total Protein 6.1 L Albumin 2.4 L Globulin 3.7 Albumin/Globulin Ratio 0.6 L Lipase 45 Procalcitonin 0.27 Chemistry Comments Medical Decision Making Findings This patient has had hematemesis, probably over the past few days as he has had black vomitus and bright red blood this morning. His troponin returned at 337. I have started him on a loading dose of Protonix, octreotide and Kcentra to reverse the Eliquis. He is currently hemodynamically stable. He will require admission. Departure Disposition: ADMITTED INPATIENT Admitted to Inpatient Unit: to hospitalist Impression: Primary Impression: Hematemesis Additional Impressions: Elevated troponin Hyponatremia Condition: Fair Referrals: NO PRIMARY CARE PROVIDER (PCP) Signature Scribe Signature: . Attestation: JOHAN AQUINO MD Jan 19, 2025 11:54
[2025-01-19 12:04] LABS: INR 1.4 INR
[2025-01-19] MEDS: octreotide 100mcg/1 ml ampule IV ONE (12:06)
[2025-01-19] MEDS: normal saline 1000ml 1,000 ML IV ONE (12:12)
[2025-01-19] MEDS: ondansetron/PF 4mg/2ml inj IV ONE (12:13)
[2025-01-19] MEDS ORDERED: magnesium sulf-water 4G/100mL 100 ML IV PRN (12:15)
[2025-01-19] MEDS: normal saline 1000ml 1,000 ML IV SCH (12:15)
[2025-01-19] MEDS ORDERED: magnesium sulf-water 2g/50mL 50 ML IV PRN (12:15)
[2025-01-19] MEDS ORDERED: potassium Cl 20 mEq SR tablet PO PRN (12:15)
[2025-01-19] MEDS ORDERED: magnesium hydroxide 30ml (MOM) UD suspension PO PRN (12:15)
[2025-01-19] MEDS ORDERED: potassium Cl 40MEQ/1/2NS 520ml 520 ML IV PRN (12:15)
[2025-01-19] MEDS ORDERED: magnesium Cl slow-release 64mg tablet PO PRN (12:15)
--- NOTE | 2025-01-19 12:31 | ELECTROCARDIOGRAPH REPORT ---
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
[2025-01-19] MEDS: octreotide inj. 500 MCG in normal saline 100ml IV soln 97.5 ML IV SCH (12:35)
[2025-01-19] MEDS: WATER FOR INJ IV ONE (12:39)
[2025-01-19] MEDS: STERILE IV ONE (12:39)
[2025-01-19] MEDS: HUM PROTHROMB CPLX LANS IV ONE (12:39)
[2025-01-19 12:43] LABS: LACTIC SEPSIS 2.8 MMOL/L (0.4-2.0)
--- NOTE | 2025-01-19 14:16 | HISTORY AND PHYSICAL-Residence ---
History & Physical Providers to CC Resident Creating Document: LITZYDAPHNEY VICK ~ History of Present Illness Primary Medical Doctor: ROLANDO Reason for Admit\Complaint: Hematemesis History of Present Illness This 79-year-old male with past medical history of nonalcoholic liver cirrhosis diagnosed one month ago associated with portal hypertension, cirrhosis, COPD who came to the ER in view of hematemesis. The patient was discharged from [facility] and was sent to a rehab. The patient was in a rehab center two weeks after which he went home. He had vomiting since two weeks three to 4 times a day, which contained food particles, not blood stained or bile stained. Today he had three episodes of vomiting in the morning. The 1st episode contained black vomitus in the 3rd episode contained bright red blood approximately 2 tbsp. He also complains of pain in his rectum, most probably due to hemorrhoids. He does not complain of diarrhea or constipation or blood in stool or black tarry stools. He complains of progressive increase in abdominal distention not associated abdominal pain. And progressive swelling of his bilateral lower limbs, No complaints of chest pain, heartburn, palpitation. Allergies: Coded Allergies: No Known Allergies (Unverified , 01/19/25) Home Medications Home Medications Active Reported Eliquis (Apixaban) 5 Mg Tablet 1 Tab PO DAILY 30 Days Meclizine HCl 25 Mg Tablet 1 Tab PO Q12H Furosemide 20 Mg Tablet 1 Tab PO DAILY Magnesium (Magnesium Oxide) Unknown Strength Capsule Unknown Dose PO DAILY Omeprazole 20 Mg Capsule.dr 1 Cap PO DAILY Vitamin D (Cholecalciferol) 2,000 Unit Tablet 1 Tab PO DAILY Anoro Ellipta 62.5-25 Mcg INH (Umeclidinium Brm/Vilanterol Tr) 1 Each Disk.w.dev Amlodipine Besylate 5 Mg Tablet 1 Tab PO DAILY Flecainide Acetate 100 Mg Tablet 1 Tab PO BID Doxepin HCl 10 Mg Capsule 1 Cap PO HS Asmanex (Mometasone Furoate) 220 Mcg Aer.pow.ba 1 Puffs Past Medical History Past Medical History Nonalcoholic liver cirrhosis with portal hypertension Paroxysmal atrial fibrillation COPD Past Surgical History Surgical History Comment Appendectomy Past Social History Smoking: Quit greater than 1 year Alcohol Use: Rarely (1-2 drinks a week) Drug Use: None Lives with: Spouse Lives In: Home Occupation: retired ROS Constitutional: Reports: weakness Respiratory: Reports: shortness of breath Gastrointestinal: Reports: abdomen distended, nausea, vomiting, hematemesis, rectal pain Male Genitalia: Reports: no symptoms reported Neurological: Reports: no symptoms reported Musculoskeletal: Reports: no symptoms reported Integumentary: Reports: bruise(s) Allergic/Immunologic: Reports: no symptoms reported Hematologic/Lymphatic: Reports: no symptoms reported, easy bruising Endocrine: Reports: no symptoms reported Psychiatric: Reports: no symptoms reported Exam Vitals: Vital Signs Date Time Temp Pulse Resp B/P (MAP) Pulse Ox O2 Delivery O2 Flow Rate FiO2 01/19/25 13:48 87 15 116/77 (90) 97 0 01/19/25 10:32 97.6 General: Physical exam: General: Well alert, well oriented, not confused, not agitated, not in acute distress, well cooperated during the physical. HEENT: Conjunctive are pink, sclerae clear, no icterus, pupil is equal in both sides, reactive to light, no ear discharge, no pharyngeal erythema or an edema. Neck: Supple, no JVD, no lymphadenopathy and thyromegaly. Chest: Equal air entry on both lungs, no additional sounds no rhonchi no wheezing at the moment. Cardiovascular: S1-S2 regular sinus rhythm and, regular rate, no gallops, no rubs, no murmurs Abdomen: Abdomen distended, fluid thrill palpable, tympanic on percussion, bowel sounds could not be heard due to distended abdomen Extremities: Bilateral pedal pedal edema 4+ till knee joint, peripheral pulses palpated Central Nervous System: No focal neurological deficits, no motor or sensory weakness in all 4 extremities, could move all 4 extremities, 2+ deep tendon reflexes, negative Babinski. No flapping tremor no signs of hepatic encephalopathy Musculoskeletal: No joint swelling, deformities, inflammations, and no scoliosis and back tenderness Skin: Easy bruisability of the skin, many spider angiomas seen on the extremities Diagnostic Data Last Recorded Lab Results: 01/19/25 1045 01/19/25 1045 Diagnostic Data: Laboratory Tests Test 01/19/25 10:45 Prothrombin Time 13.5 SECONDS (9.0-12.0) H INR International Normalized Ratio 1.4 INR Coagulation Comments Counseling Services Smoking & Tobacco Cessation: N/A Advance Care Planning Advanced Care plannin - 30 Minutes (Full code) Additional Plan Assessment: This 73-year-old male with past medical history of nonalcoholic liver cirrhosis diagnosed one month ago associated with portal hypertension, cirrhosis, COPD who came to the ER in view of hematemesis. Plan: Hematemesis most likely due to retching v/s esophageal varices 01/19/2025: Three episodes of hematemesis, patient was on Eliquis for atrial fibrillation Eliquis withheld PT 13.5, INR 1.4 PCC administered in ER H&H 16.1 and 46.6. WBC 12.9, mostly reactive, lactic acid 2.8 Octreotide drip administered in ER along with Protonix IV 80 mg. Endoscopy done three weeks ago did not show any varices. We will start Protonix drip Aspiration precaution in place Nonalcoholic liver cirrhosis with portal hypertension Child pughs score- 11. class C 01/19/2025: Total bilirubin 2.7, AST 62, ALT 31, ALP 152 Total protein 6.1, albumin 2.4, globulin 3.7, ammonia 19 Abdomen distended, tympanic on percussion and fluid thrill palpable Therapeutic paracentesis done three weeks ago showed SAAG >1.1 Endoscopy done three weeks ago did not show any varices. Started Lasix 20 mg IV b.i.d. to hold IV fluids Patient complaining of rectal pain, but no diarrhea or constipation and blood in stools or black tarry stools We will continue monitoring symptoms Proximal atrial fibrillation 01/19/2025: With Eliquis in view of high PT and hematemesis We will continue monitoring heart rate and rhythm Now in sinus rhythm Follow up with ECHO reports Acute on chronic kidney disease 01/19/2025: Creatinine in current admission 2.25, creatinine previous admission three weeks ago 1.18, BUN 46 E GFR 28, troponin 337, most probably due to risk creatinine Patient has no complaints of chest pain, palpitation Hyponatremia 01/19/2025: Sodium levels 130 Ordered urine osmolality and serum osmolality and urine sodium Hypokalemia 01/19/2025: Potassium 3.4 We will continue monitoring levels Hypo/hyperkalemia protocol in place Code Status: Full code DVT prophylaxis: SCDs Analgesia/sedation: None Line/tube: PIV GI prophylaxis: Protonix drip Nutrition: Full liquid diet as tolerated Prognosis: Guarded Disposition: Admit the patient in PCU/telemetry, continue medical management Daphney Auguste MD PGY1, Internal Medicine [facility] Date of Service: Jan 19, 2025 Billing Provider: CEDRIC REDDY MD Common Visit Codes: [id number] INP/OBS CARE (HIGH) Secondary Visit Codes: [id number] CARE PLAN 30 MINUTES DAPHNEY AUGUSTE, VICK Jan 19, 2025 14:16 CEDRIC REDDY MD Jan 21, 2025 06:38
[2025-01-19 14:21] VITALS: BP 113/76; PULSE 86; RESP 12; TEMP 97.6; O2SAT 95
[2025-01-19 17:35] VITALS: RESP 16; O2SAT 94
[2025-01-19 18:00] VITALS: BP 118/79; PULSE 93; RESP 17; TEMP 97.1; O2SAT 94
[2025-01-19] MEDS: HYDROcodone/acetaminophen 10/325mg tab PO PRN (19:52)
[2025-01-19 20:00] VITALS: RESP 16; O2SAT 94
[2025-01-19] MEDS: K and/or MAG REPLACEMENT MC SCH (20:00)
[2025-01-19] MEDS: potassium Cl 20 mEq SR tablet PO PRN (20:18)
[2025-01-19] MEDS: pantoprazole 40MG/NS 100ML BAG 100 ML IV SCH (20:19)
[2025-01-19] MEDS: docusate sod 100mg capsule PO SCH (20:19)
[2025-01-19] MEDS: ondansetron/PF 4mg/2ml inj IV PRN (20:21)
[2025-01-19 22:00] VITALS: BP 104/74; PULSE 87; RESP 12; TEMP 97; O2SAT 94
[2025-01-20] VITALS (10 sets, daily range): BP systolic 94–115; BP diastolic 58–73; PULSE 86–95; RESP 6–19; TEMP 96.7–97.3; O2SAT 92–98
[2025-01-20 02:30] LABS: MEAN PLATELET VOLUME 7.6 FL (7.4-10.4); RED CELL DISTRIBUTION WIDTH 15.6 % (11.5-14.5)
[2025-01-20 02:44] LABS: CREATININE 2.58 MG/DL (0.60-1.10); TOTAL CARBON DIOXIDE 29.6 MMOL/L (24-32); eCRCL 25 ML/MIN; eGFR 24 ML/MIN
[2025-01-20] MEDS ORDERED: normal saline 500ml IV soln 500 ML IV ONE (02:45)
[2025-01-20] MEDS: albumin (human) 25% 100 ML IV solution IV ONE (04:12)
[2025-01-20 04:16] LABS: OSMOLALITY UA 414 MOSM/K (50-1400)
[2025-01-20 04:18] LABS: LEUKOCYTE ESTERASE ,URINE NEGATIVE (Neg); NITRITES, URINE NEGATIVE (Neg); OCCULT BLOOD,URINE MODERATE (Neg)
[2025-01-20 04:26] LABS: UA COLLECTION TYPE STRAIGHT CATH
[2025-01-20] MEDS: midodrine tablet 2.5 MG TABLET PO SCH (04:30)
[2025-01-20 04:34] LABS: HYALINE CASTS >30 /LPF (NEGATIVE)
[2025-01-20 04:35] LABS: SQUAMOUS EPITHELIAL CELL,UR FEW /LPF (FEW)
--- NOTE | 2025-01-20 10:46 | ELECTROCARDIOGRAPH REPORT ---
[facility] Test Date: 2025-01-20 Test Time: 10:44:28 Pat Name: SWATHI LAGUNAS Department: 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 BRENDA Gardner Measurements Intervals Burns Rate: 93 P: 73 MT: 159 QRS: -63 QRSD: 96 T: 68 QT: 389 QTc: 484 Interpretive Statements Sinus rhythm Left axis deviation Low voltage, extremity and precordial leads Nonspecific T abnormalities, anterior leads Borderline prolonged QT interval Electronically Signed On 01-20-2025 16:32:[address] BRENDA Gardner Please click the below link to view image of tracing.
--- NOTE | 2025-01-20 11:10 | RADIOLOGY REPORT ---
CHEST RADIOGRAPH Indication: altered mental status Technique: Single frontal view of the chest was obtained Comparison: DI CHEST,SINGLE VIEW on DOS: 01/01/25, DI CHEST,SINGLE VIEW on DOS: 09/30/24, CHEST,SINGLE EW on DOS: 03/24/22, CHEST,SINGLE VIEW on DOS: 09/22/20 FINDINGS: Lines and Tubes: Left-sided pacemaker Lungs: No focal consolidation. Pleura: No effusion. No pneumothorax. Cardiomediastinal contours: Unremarkable Bones: No acute osseous abnormality. IMPRESSION: No acute cardiopulmonary disease.
[2025-01-20] MEDS: lactulose 20gm/30ml cup PO SCH (14:00)
[2025-01-20 14:05] LABS: GLUCOSE,BODY FLUID 150 MG/DL; LDH,BODY FLUID 84 U/L
[2025-01-20 14:17] LABS: ALBUMIN,BODY FLUID < 0.6 G/DL; TOTAL PROTEIN,BODY FLUID < 2.0 G/DL
[2025-01-20 14:29] LABS: BFAPPEAR CLEAR; BFCOLOR YELLOW; BFSOURCE ASCITES FLD
[2025-01-20 14:30] LABS: BF RBC COUNT 2080 /CU MM; BF WBC COUNT 47 /CU MM (0-1000); BFVOLUME 16 ML; LYMPHOCYTES,BODY FLUID 49 %; MONOCYTES,BODY FLUID 16 %; NEUTROPHILS,BODY FLUID 35 %
[2025-01-20 14:32] LABS: ABG BASE EXCESS 3.6 mmol/L (-2.0-3.0); ABG HCO3 27.1 mmol/L (21.0-28.0); ABG OXYGEN SATURATION 92.1 % (94.0-98.0); ABG PCO2 (T) 36.9 mmHg (35.0-48.0); ABG PH (T) 7.483 (7.350-7.450); ABG PO2 (T) 61.0 mmHg (83.0-108.0); ALLEN'S TEST POSITIVE; FCOHb 1.0 % (0.5-1.5); FHHb 7.8 % (0.0-5.0); FIO2 21.0 mmHg/%; FMetHb 0.1 % (0.0-1.5); FO2Hb 91.1 % (94.0-98.0); PATIENT TEMPERATURE 36.7; TOTAL HEMOGLOBIN 13.9 G/dl (13.5-17.5)
--- NOTE | 2025-01-20 14:35 | RADIOLOGY REPORT ---
PROCEDURE: ULTRASOUND GUIDED PARACENTESIS HISTORY: 79 Male requiring paracentesis. TECHNIQUE: The risks and benefits of the procedure including but not limited to bleeding, infection and injury t o abdominal organs were explained to the patient and written informed consent was obtained. Optimal site for puncture was determined using ultrasound and the area sterilized and draped. Using a 5 Thai Pathableeh catheter, paracentesis was performed in the right lower quadrant abdomen. Approximate ly 3.6 liters of serous fluid was removed. The patient tolerated the procedure well. There were no immediate complications. IMPRESSION: Ultrasound-guided paracentesis with no immediate complications.
--- NOTE | 2025-01-20 18:59 | CONSULTATION REPORT - RESIDENT ---
Consult Providers to CC Resident Creating Document: ILDEFONSO HAMMONDS, RES CC: FAUSTINA JUAREZ MD History of Present Illness Reason for Admit\Complaint: Hematemesis History of Present Illness An 79-year-old female with PMH of decompensated liver cirrhosis diagnosed one month ago presented to the ED in view of hematemesis. Patient had distended abdomen with imaging revealing ascites. ICU was consulted in view of paracentesis. Allergies: Coded Allergies: No Known Allergies (Unverified , 01/19/25) Home Medications Home Medications Active Reported Eliquis (Apixaban) 5 Mg Tablet 1 Tab PO DAILY 30 Days Meclizine HCl 25 Mg Tablet 1 Tab PO Q12H Furosemide 20 Mg Tablet 1 Tab PO DAILY Magnesium (Magnesium Oxide) Unknown Strength Capsule Unknown Dose PO DAILY Omeprazole 20 Mg Capsule.dr 1 Cap PO DAILY Vitamin D (Cholecalciferol) 2,000 Unit Tablet 1 Tab PO DAILY Anoro Ellipta 62.5-25 Mcg INH (Umeclidinium Brm/Vilanterol Tr) 1 Each Disk.w.dev Amlodipine Besylate 5 Mg Tablet 1 Tab PO DAILY Flecainide Acetate 100 Mg Tablet 1 Tab PO BID Doxepin HCl 10 Mg Capsule 1 Cap PO HS Asmanex (Mometasone Furoate) 220 Mcg Aer.pow.ba 1 Puffs Past Medical History Past Medical History Nonalcoholic liver cirrhosis Paroxysmal AFib COPD Past Surgical History Surgical History Comment Appendectomy Exam Vitals: Vital Signs Date Time Temp Pulse Resp B/P (MAP) Pulse Ox O2 Delivery O2 Flow Rate FiO2 01/20/25 13:49 91 14 98/58 (71) 96 Room Air 01/20/25 02:00 96.7 1.0 General: General: Elderly debilitated male, alert awake and oriented HEENT: PERRLA, no icterus, pallor, lymphadenopathy, carotid bruit Respiratory system: Bilateral vesicular breath sounds heard, no adventitious breath sounds CVS: S1-S2 heard, no murmurs/rubs/gallop GI: Distended abdomen. Soft, nontender, no organomegaly, no guarding/rigidity, bowel sounds present Neuro: No focal neurological deficits present Extremities: No edema cyanosis clubbing/deformities Skin: Warm and dry, multiple spider angiomata present on the chest Diagnostic Data Last Recorded Lab Results: 01/20/25 02101/20/25 0210 Diagnostic Data: Laboratory Tests Test 01/19/25 10:45 Prothrombin Time 13.5 SECONDS (9.0-12.0) H INR International Normalized Ratio 1.4 INR Coagulation Comments Additional Plan Acute decompensated nonalcoholic liver cirrhosis Ascites and portal hypertension 3600 mL of straw-colored fluid taken out and sent for analysis Possible esophageal varices Proximal AFib Acute on CKD Management per hospitalist Ildefonso Hammonds MD Internal Medicine, PGY 2 Date of Service: Jan 20, 2025 Billing Provider: FAUSTINA JUAREZ MD, SIVA, RES Jan 20, 2025 18:59
--- NOTE | 2025-01-20 19:00 | PROCEDURE NOTE- Residance ---
Procedure Note Providers to CC CC: FAUSTINA JUAREZ MD ~ Description A time-out was performed. My hands were washed immediately prior to the procedure. I wore a surgical cap, mask with protective eyewear, sterile gown and sterile gloves throughout the procedure. The area was cleansed and draped in usual sterile fashion using chlorhexidine scrub. Anesthesia was achieved with 1% lidocaine. The right inferior side of the abdomen was prepped and draped in a sterile fashion using chlorhexidine scrub. 1% lidocaine was used to numb the skin, soft tissue and peritoneum. The paracentesis catheter was inserted and advanced with negative pressure until straw colored fluid was aspirated. Approximately 60 mL of ascitic fluid was collected and sent for laboratory analysis. The catheter was then connected to the vaccutainer and 3.6 liters of additional ascitic fluid were drained. The catheter was removed and no leaking was noted. A bandaid was placed over the puncture wound. The patient tolerated the procedure well without any immediate complications. Estimated blood loss was less than 5 mL Date of Service: Jan 20, 2025 Billing Provider: FAUSTINA JUAREZ MD, SIVA, RES Jan 20, 2025 19:00
--- NOTE | 2025-01-20 20:58 | PROGRESS NOTE- Residence ---
Progress Note - Resident Providers to CC Resident Creating Document: DAPHNEY AUGUSTE RES ~ Haque-Non Protocol Haque Indications Met/Not Met: F/C Indications Met Antibiotic Timeout Antibiotic Ordered?: Yes Subjective Patient was examined bedside. He is drowsy and disoriented. Objective Vital Signs Date Time Temp Pulse Resp B/P (MAP) Pulse Ox O2 Delivery O2 Flow Rate FiO2 01/20/25 15:00 97.3 92 6 112/62 (79) 93 Room Air 01/20/25 06:00 1.0 Result Diagram: 01/20/2520901/20/25209 Physical exam: General: Well alert, well oriented, not confused, not agitated, not in acute distress, well cooperated during the physical. HEENT: Conjunctive are pink, sclerae clear, no icterus, pupil is equal in both sides, reactive to light, no ear discharge, no pharyngeal erythema or an edema. Neck: Supple, no JVD, no lymphadenopathy and thyromegaly. Chest: Equal air entry on both lungs, no additional sounds no rhonchi no wheezing at the moment. Cardiovascular: S1-S2 regular sinus rhythm and, regular rate, no gallops, no rubs, no murmurs Abdomen: Abdomen distended, fluid thrill palpable, tympanic on percussion, bowel sounds could not be heard due to distended abdomen. Pain on deep palpation in all quadrants Extremities: Bilateral pedal pedal edema 4+ till knee joint, peripheral pulses palpated Central Nervous System: Patient as drowsy and confused today Moving all 4 extremities, 2+ deep tendon reflexes, negative Babinski. No flapping tremor no signs of hepatic encephalopathy Musculoskeletal: No joint swelling, deformities, inflammations, and no scoliosis and back tenderness Skin: Easy bruisability of the skin, many spider angiomas seen on the extremities Coagulation Studies Laboratory Tests Test 01/19/25 10:45 Prothrombin Time 13.5 SECONDS (9.0-12.0) H INR International Normalized Ratio 1.4 INR Coagulation Comments Assessment Assessment Assessment: This 73-year-old male with past medical history of nonalcoholic liver cirrhosis diagnosed one month ago associated with portal hypertension, cirrhosis, COPD who came to the ER in view of hematemesis. Plan Plan Plan: Sepsis most likely secondary to decompensated liver cirrhosis Not meeting sirs criteria 01/20/2025: No raise in temperature, systolic blood pressure in 100s WBC 10.5. Lactic acid increased from 2.4-3.6. Ammonia stable at 19. proCalcitonin 0.27 Started ceftriaxone 1 g IV daily dose Hydration with 100 mL/hour NS. Serum creatinine 2.58, BUN 50 Blood culture sent Hematemesis most likely due to retching v/s esophageal varices 01/19/2025: Three episodes of hematemesis, patient was on Eliquis for atrial fibrillation Eliquis withheld PT 13.5, INR 1.4 PCC administered in ER H&H 16.1 and 46.6. WBC 12.9, mostly reactive, lactic acid 2.8 Octreotide drip administered in ER along with Protonix IV 80 mg. Endoscopy done three weeks ago did not show any varices. We will start Protonix drip Aspiration precaution in place 01/20/2025: No more episodes of hematemesis Decompensated Nonalcoholic liver cirrhosis with portal hypertension leading to hepatic encephalopathy Child pughs score- 11. class C 01/19/2025: Total bilirubin 2.7, AST 62, ALT 31, ALP 152 Total protein 6.1, albumin 2.4, globulin 3.7, ammonia 19 Abdomen distended, tympanic on percussion and fluid thrill palpable Therapeutic paracentesis done three weeks ago showed SAAG >1.1 Endoscopy done three weeks ago did not show any varices. Started Lasix 20 mg IV b.i.d. to hold IV fluids Patient complaining of rectal pain, but no diarrhea or constipation and blood in stools or black tarry stools We will continue monitoring symptoms 01/20/2025: Patient not following commands, increased drowsiness Aspiration precautions in place Abdomen remains distended tympanic on percussion fluid thrill palpable. Underwent diagnostic and therapeutic paracentesis today. Drained 3600 mL fluid. Started on lactulose 200 mg enema. Gastroenterology consulted. Suggested medical management for now. Started hydration with 100 mL/hour NS. When there is an improvement in kidney function and mentation, came balanced hydration with diuresis. Can consider using spironolactone with Lasix for diuresis. Proximal atrial fibrillation with controlled ventricular 01/19/2025: With Eliquis in view of high PT and hematemesis We will continue monitoring heart rate and rhythm Now in sinus rhythm ECHO: Small LV cavity with normal wall thickness. Overall systolic function is normal. LVEF is 65-70%. Right ventricle is grossly normal in size and function. The left atrium size is grossly normal. Pacemaker lead is present in the right heart. Aortic valve is probably trileaflet with mild sclerosis. No stenosis. No insufficiency. Mitral valve leaflets are mildly thickened with mild annular calcification. No stenosis. Trace regurgitation. Tricuspid valve is grossly normal in structure without significant regurgitation. Pulmonic valve is not well visualized. The aortic root is normal in size. IVC is normal in size. Normal pericardium. No effusion. Pleural effusion present. Technically limited study due to body habitus. Poor to no parasternal or apical views. Acute on chronic kidney disease 01/19/2025: Creatinine in current admission 2.25, creatinine previous admission three weeks ago 1.18, BUN 46 E GFR 28, troponin 337, most probably due to risk creatinine Patient has no complaints of chest pain, palpitation 01/20/2025: Creatinine raised to 2.58 today. Started hydration with 100 mL/hour NS Watch for of volume overload Hypotonic Hyponatremia 01/19/2025: Sodium levels 130 01/20/2025: Sodium levels of 129, urine osmolality 414, urine sodium less than 15, serum osmolality 290 hydration with 100 mL/hour NS Hypokalemia 01/19/2025: Potassium 3.4 We will continue monitoring levels Hypo/hyperkalemia protocol in place Code Status: Full code DVT prophylaxis: SCDs Analgesia/sedation: None Line/tube: PIV GI prophylaxis: Protonix drip Nutrition: Full liquid diet as tolerated Prognosis: Guarded Disposition: Admit the patient in PCU/telemetry, continue medical management Daphney Auguste MD PGY1, Internal Medicine [facility] Date of Service: Jan 20, 2025 Billing Provider: CEDRIC REDDY MD Common Visit Codes: [id number] INP/OBS CARE(HIGH) DAPHNEY AUGUSTE, VICK Jan 20, 2025 20:58 CEDRIC REDDY MD Jan 21, 2025 06:39
[2025-01-20 21:22] LABS: MEAN PLATELET VOLUME 7.5 FL (7.4-10.4); RED CELL DISTRIBUTION WIDTH 15.3 % (11.5-14.5)
[2025-01-20] MEDS: Lactulose Enema **for rectal use only RC ONE (23:15)
[2025-01-21] VITALS (11 sets, daily range): BP systolic 93–105; BP diastolic 59–79; PULSE 56–175; RESP 10–22; TEMP 96.6–97.8; O2SAT 93–96
[2025-01-21 07:47] LABS: MEAN PLATELET VOLUME 8.5 FL (7.4-10.4); RED CELL DISTRIBUTION WIDTH 15.4 % (11.5-14.5)
[2025-01-21] MEDS ORDERED: Lactulose Enema **for rectal use only RC ONE (08:00)
[2025-01-21 08:21] LABS: MEAN PLATELET VOLUME 8.0 FL (7.4-10.4); RED CELL DISTRIBUTION WIDTH 15.5 % (11.5-14.5)
[2025-01-21 08:31] LABS: CREATININE 2.50 MG/DL (0.60-1.10); TOTAL CARBON DIOXIDE 25.7 MMOL/L (24-32); eCRCL 26 ML/MIN; eGFR 25 ML/MIN
[2025-01-21] MEDS: CefTRIAXone/D5W-Rocephin 1gm 50 ML IV SCH (08:35)
[2025-01-21 08:45] LABS: LACTIC SEPSIS 2.4 MMOL/L (0.4-2.0)
[2025-01-21] MEDS ORDERED: LIDOcaine 2% Viscous 15ml cup ONE (09:14)
--- NOTE | 2025-01-21 10:28 | ELECTROCARDIOGRAPH REPORT ---
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 BRENDA Gardner Measurements Intervals [place] Rate: 143 P: 0 MD: 0 QRS: -84 QRSD: 84 T: 246 QT: 311 QTc: 480 Interpretive Statements Atrial fibrillation with rapid V-rate Paired ventricular premature complexes Left anterior fascicular block Low voltage, precordial leads Repolarization abnormality, prob rate related Electronically Signed On 01-21-2025 15:19:[address] BRENDA Gardner Please click the below link to view image of tracing.
[2025-01-21] MEDS: normal saline 500ml IV soln 500 ML IV ONE (10:31)
[2025-01-21] MEDS: digoxin 250mcg/ml 2ml ampule IV ONE (10:31)
[2025-01-21] MEDS ORDERED: benzocaine/benzethon 30gm ointment RC PRN (12:55)
[2025-01-21] MEDS: benzocaine/benzethon 30gm ointment RC PRN (13:14)
[2025-01-21] MEDS: HYDROcodone/acetaminophen 5mg/325mg tablet PO PRN (15:41)
--- NOTE | 2025-01-21 18:27 | PROGRESS NOTE- Residence ---
Progress Note - Resident Providers to CC Resident Creating Document: DAPHNEY AUGUSTE RES ~ Central Line/PICC still needed: N\A Antibiotic Timeout Antibiotic Ordered?: No Subjective Patient was examined bedside. He is agitated today, but oriented to person. He complains of pain in his rectum especially while pooping. He has had 2-3 bowel movements today. Not diarrhea or constipation and no blood in stools. Objective Vital Signs Date Time Temp Pulse Resp B/P (MAP) Pulse Ox O2 Delivery O2 Flow Rate FiO2 01/21/25 17:23 18 01/21/25 10:31 151 01/21/25 08:00 Room Air 01/21/25 06:00 97.1 105/71 (82) 95 01/20/25 19:30 0 21 Result Diagram: 01/21/25 0759 01/21/25 0648 Physical exam: General: Well alert, well oriented, not confused, not agitated, not in acute distress, well cooperated during the physical. HEENT: Conjunctive are pink, sclerae clear, no icterus, pupil is equal in both sides, reactive to light, no ear discharge, no pharyngeal erythema or an edema. Neck: Supple, no JVD, no lymphadenopathy and thyromegaly. Chest: Equal air entry on both lungs, no additional sounds no rhonchi no wheezing at the moment. Cardiovascular: S1-S2 regular sinus rhythm and, regular rate, no gallops, no rubs, no murmurs Abdomen: Abdomen distended but not tense status post paracentesis yesterday. 3600 mL fluid drained. Tenderness on deep palpation in all quadrants. No guarding no rigidity Extremities: Bilateral pedal pedal edema 4+ till knee joint, peripheral pulses palpated Central Nervous System: Patient as drowsy and confused today Moving all 4 extremities, 2+ deep tendon reflexes, negative Babinski. No flapping tremor no signs of hepatic encephalopathy Musculoskeletal: No joint swelling, deformities, inflammations, and no scoliosis and back tenderness Skin: Easy bruisability of the skin, many spider angiomas seen on the extremities Coagulation Studies Laboratory Tests Test 01/19/25 10:45 Prothrombin Time 13.5 SECONDS (9.0-12.0) H INR International Normalized Ratio 1.4 INR Coagulation Comments Assessment Assessment Assessment: This 73-year-old male with past medical history of nonalcoholic liver cirrhosis diagnosed one month ago associated with portal hypertension, cirrhosis, COPD who came to the ER in view of hematemesis. Plan Plan Plan: Hepatic encephalopathy most likely due to decompensated liver cirrhosis Not meeting sirs criteria 01/20/2025: No raise in temperature, systolic blood pressure in 100s WBC 10.5. Lactic acid increased from 2.4-3.6. Ammonia stable at 19. proCalcitonin 0.27 Started ceftriaxone 1 g IV daily dose Hydration with 100 mL/hour NS. Serum creatinine 2.58, BUN 50 Blood culture sent 01/21/2025: Pulse rate 140, blood pressure soft, systolic blood pressure in 100s WBC 9.3, lactic acid reduced from 2.4-1.7, ammonia increased from 19 due 42 We will stop ceftriaxone since sepsis and SBP is ruled out. Hematemesis most likely due to retching v/s esophageal varices 01/19/2025: Three episodes of hematemesis, patient was on Eliquis for atrial fibrillation Eliquis withheld PT 13.5, INR 1.4 PCC administered in ER H&H 16.1 and 46.6. WBC 12.9, mostly reactive, lactic acid 2.8 Octreotide drip administered in ER along with Protonix IV 80 mg. Endoscopy done three weeks ago did not show any varices. We will start Protonix drip Aspiration precaution in place 01/20/2025: No more episodes of hematemesis 01/21/2025: Patient could not undergo endoscopy today due to atrial fibrillation with rapid ventricular rate of 140s Decompensated Nonalcoholic liver cirrhosis with portal hypertension leading to hepatic encephalopathy Child pughs score- 11. class C 01/19/2025: Total bilirubin 2.7, AST 62, ALT 31, ALP 152 Total protein 6.1, albumin 2.4, globulin 3.7, ammonia 19 Abdomen distended, tympanic on percussion and fluid thrill palpable Therapeutic paracentesis done three weeks ago showed SAAG >1.1 Endoscopy done three weeks ago did not show any varices. Started Lasix 20 mg IV b.i.d. to hold IV fluids Patient complaining of rectal pain, but no diarrhea or constipation and blood in stools or black tarry stools We will continue monitoring symptoms 01/20/2025: Patient not following commands, increased drowsiness Aspiration precautions in place Abdomen remains distended tympanic on percussion fluid thrill palpable. Underwent diagnostic and therapeutic paracentesis today. Drained 3600 mL fluid. Started on lactulose 200 mg enema. Gastroenterology consulted. Suggested medical management for now. Started hydration with 100 mL/hour NS. When there is an improvement in kidney function and mentation, came balanced hydration with diuresis. Can consider using spironolactone with Lasix for diuresis. 01/21/2025: Continue hydration with 500 mL bolus and 100 mL/hour normal saline Abdomen remains distended, status post paracentesis, 3600 mL yellow fluid drained yesterday Ascitic fluid shows WBC 47, RBC 2080, neutrophils 35, fluid glucose 150- SBP ruled out Continue lactulose p.o. and adjust dosing to make 2 soft stools a day We will stop ceftriaxone today Proximal atrial fibrillation with controlled ventricular 01/19/2025: With Eliquis in view of high PT and hematemesis We will continue monitoring heart rate and rhythm Now in sinus rhythm ECHO: Small LV cavity with normal wall thickness. Overall systolic function is normal. LVEF is 65-70%. Right ventricle is grossly normal in size and function. The left atrium size is grossly normal. Pacemaker lead is present in the right heart. Aortic valve is probably trileaflet with mild sclerosis. No stenosis. No insufficiency. Mitral valve leaflets are mildly thickened with mild annular calcification. No stenosis. Trace regurgitation. Tricuspid valve is grossly normal in structure without significant regurgitation. Pulmonic valve is not well visualized. The aortic root is normal in size. IVC is normal in size. Normal pericardium. No effusion. Pleural effusion present. Technically limited study due to body habitus. Poor to no parasternal or apical views. 01/21/2025: Heart rate of 140s EKG shows AFib Continue flecainide 100 mg p.o. b.i.d. Eliquis in view of high PT and past history of hematemesis Monitor rate and rhythm Acute on chronic kidney disease 01/19/2025: Creatinine in current admission 2.25, creatinine previous admission three weeks ago 1.18, BUN 46 E GFR 28, troponin 337, most probably due to risk creatinine Patient has no complaints of chest pain, palpitation 01/20/2025: Creatinine raised to 2.58 today. Started hydration with 100 mL/hour NS Watch for of volume overload 01/19/2025: Creatinine still at 2.5 today. Continue hydration 100 mL/hour NS with 500 mL bolus Watch for volume overload. Patient passed urine today. Monitor output Hypotonic Hyponatremia 01/19/2025: Sodium levels 130 01/20/2025: Sodium levels of 129, urine osmolality 414, urine sodium less than 15, serum osmolality 290 hydration with 100 mL/hour NS 01/21/2025: Sodium levels are 127. We will continue hydration Rectal pain most likely due to external hemorrhoids 01/21/2025: 2-3 normal bowel movements, no blood or black tarry stools Apply hemorrhoidal cream t.i.d. or after every bowel movement. Hypokalemia 01/19/2025: Potassium 3.4 We will continue monitoring levels Hypo/hyperkalemia protocol in place Code Status: Full code DVT prophylaxis: SCDs Analgesia/sedation: None Line/tube: PIV GI prophylaxis: Protonix drip Nutrition: Full liquid diet as tolerated after bedside swallow study Prognosis: Guarded Disposition: continue medical management Daphney Auguste MD PGY1, Internal Medicine [facility] Date of Service: Jan 21, 2025 Billing Provider: CEDRIC REDDY MD Common Visit Codes: [id number] INP/OBS CARE(HIGH) DAPHNEY AUGUSTE, RES Jan 21, 2025 18:27 CEDRIC REDDY MD Jan 22, 2025 08:01
--- NOTE | 2025-01-21 19:46 | CARDIOLOGY REPORT ---
APPROVED REPORT EXAM: Limited 2D, Doppler, and color-flow Echocardiogram. Patient Location: [address] Blood Pressure: 94/63 mmHg Heart Rate: 90 bpm Indications Arrhythmia Congestive Heart Failure Hypertension COPD HX of P- Atrial Fibrillation ARABIC TEACHER: Jose Goel DO Previous ECHO: 01/02/25, [facility], EF: 70-75 2D Dimensions IVSd 1.0 (0.7-1.1cm) LVDd 3.7 cm PWd 1.1 (0.7-1.1cm) IVSs 1.1 (0.8-1.2cm) LVDs 2.5 (2.5-4.0cm) PWs 0.9 (0.8-1.2cm) LVEF(%) 60.2 (>50%) IVC 15.24 mm FS (%) 31.4 % SV 34.9 ml CO 3.1 L/min M-Mode Dimensions Left Atrium(MM) 3.87 (2.5-4.0cm) Aortic Root 2.20 (2.2-3.7cm) Aortic Cusp Exc 1.37 (1.5-2.0cm) MV EPSS 0.7 (<0.5cm) LEFT VENTRICLE Small LV cavity with normal wall thickness. Overall systolic function is normal. LVEF is 65-70%. RIGHT VENTRICLE Right ventricle is grossly normal in size and function. ATRIA The left atrium size is grossly normal. Pacemaker lead is present in the right heart. AORTIC VALVE Aortic valve is probably trileaflet with mild sclerosis. No stenosis. No insufficiency. MITRAL VALVE Mitral valve leaflets are mildly thickened with mild annular calcification. No stenosis. Trace regurg itation. TRICUSPID VALVE Tricuspid valve is grossly normal in structure without significant regurgitation. PULMONIC VALVE Pulmonic valve is not well visualized. GREAT VESSELS The aortic root is normal in size. IVC is normal in size. PERICARDIUM Normal pericardium. No effusion. Pleural effusion present. Other Information Technically limited study due to body habitus. Poor to no parasternal or apical views. Conclusion Small LV cavity with normal wall thickness. Overall systolic function is normal. LVEF is 65-70%. Right ventricle is grossly normal in size and function. The left atrium size is grossly normal. Pacemaker lead is present in the right heart. Aortic valve is probably trileaflet with mild sclerosis. No stenosis. No insufficiency. Mitral valve leaflets are mildly thickened with mild annular calcification. No stenosis. Trace regu rgitation. Tricuspid valve is grossly normal in structure without significant regurgitation. Normal pericardium. No effusion.
[2025-01-21] MEDS ORDERED: non-formulary drug (Meclizine HCl 1 TAB) PO SCH (20:00)
[2025-01-22] VITALS (8 sets, daily range): BP systolic 102–116; BP diastolic 60–77; PULSE 63–84; RESP 8–18; TEMP 96.4–97.8; O2SAT 94–99
[2025-01-22 04:15] LABS: LEUKOCYTE ESTERASE ,URINE NEGATIVE (Neg); OCCULT BLOOD,URINE LARGE (Neg)
[2025-01-22 04:20] LABS: UA COLLECTION TYPE NON-SPECIFIED
[2025-01-22 04:22] LABS: NITRITES, URINE NEGATIVE (Neg)
[2025-01-22 04:23] LABS: SQUAMOUS EPITHELIAL CELL,UR NONE SEEN /LPF (FEW)
--- NOTE | 2025-01-22 07:09 | PROGRESS NOTE ---
DATE: 01/21/2025 DICTATING PHYSICIAN: Elton Hopkins MD SUBJECTIVE: The patient is much more alert today. He is coherent, opening his eyes. OBJECTIVE: VITAL SIGNS: Normal. GENERAL: Looks better than yesterday overall. Afebrile. NECK: Supple. HEART: Normal. LUNGS: Normal. ABDOMEN: Less distended after the large volume paracentesis. Bowel sounds are present. He was scheduled for an EGD today. During preprocedure evaluation, he was found to have SVT. Because of which, the procedure was cancelled. IMPRESSION AND PLAN: Advanced liver cirrhosis, came in hematemesis. Subsequently, supposedly got septic. Also had some mild change in mental status, which has improved. A little imbalances have been addressed. He also had some progressive worsening of renal function. Today because of SVT, EGD was cancelled. There is no active bleeding. Hemoglobin has remained stable. We will defer EGD until he is clinically much more stable unless he starts bleeding in the meantime. At this point in time, we will follow him clinically and intervene as necessary. Elton Hopkins MD TID: [id number] RECEIPT: [id number] EVER/SREEDHAR/PANCHITO
--- NOTE | 2025-01-22 08:49 | PROGRESS NOTE ---
DATE: 01/22/2025 DICTATING PHYSICIAN: Elton Hopkins MD SUBJECTIVE: The patient is asleep, but arousable, somewhat coherent although appears very lethargic. Vital signs overnight are normal. It must be recalled that EGD was cancelled yesterday because of his suspicion of SVT. Apparently, it was fast AFib. The patient has been doing well now. He has not had any further GI bleeding. He has been having loose bowel movements. Otherwise, no new report, no new complaints from overnight. OBJECTIVE: GENERAL: He is somewhat lethargic. VITAL SIGNS: Normal. HEART: Normal. LUNGS: Normal. ABDOMEN: Soft, mildly distended. He is status post paracentesis. Bowel sounds are present. IMPRESSION: Advanced liver disease, admitted initially with GI bleeding subsequently showed signs of infectious process going on. Has been covered with antibiotics. Has had mild electrolyte abnormalities and mental status change has been treated assuming it could be hepatic encephalopathy with lactulose. That is being cleared now. He is gradually becoming to a stable situation and also because of the fact that he has not had any ongoing bleeding, I will defer endoscopy until after the weekend, reevaluate it Friday and decide about endoscopy as needed. In the meantime, we will continue current treatment including close monitoring for any deterioration in mental state, electrolyte abnormalities and signs of ongoing sepsis. Kidney function needs to be monitored closely as well. Elton Hopkins MD TID: [id number] RECEIPT: [id number] EVER/DEMETRIO/ALLYSSA
[2025-01-22] MEDS: lactulose 20gm/30ml cup PO SCH (09:08)
[2025-01-22] MEDS: cholecalciferol (vitamin D3) 1,000 unit (25mcg) tablet PO SCH (09:08)
[2025-01-22 10:23] LABS: CREATININE 2.06 MG/DL (0.60-1.10); TOTAL CARBON DIOXIDE 23.6 MMOL/L (24-32); eCRCL 32 ML/MIN; eGFR 31 ML/MIN
[2025-01-22 12:15] LABS: MEAN PLATELET VOLUME 8.5 FL (7.4-10.4); RED CELL DISTRIBUTION WIDTH 15.7 % (11.5-14.5)
--- NOTE | 2025-01-22 18:28 | PROGRESS NOTE- Residence ---
Progress Note - Resident Providers to CC Resident Creating Document: DAPHNEY AUGUSTE RES ~ Central Line/PICC still needed: N\A Haque-Non Protocol Haque Indications Met/Not Met: F/C Indications Met Antibiotic Timeout Antibiotic Ordered?: Yes Subjective Patient was examined bedside. He is drowsy today, but oriented to person. He complains of pain in his rectum especially while pooping. He has had 2-3 bowel movements today. Not diarrhea or constipation and no blood in stools. Objective Vital Signs Date Time Temp Pulse Resp B/P (MAP) Pulse Ox O2 Delivery O2 Flow Rate FiO2 01/22/25 15:00 96.6 63 17 106/66 (79) 98 Room Air 01/21/25 19:30 0 21 Result Diagram: 01/23/25 0531 01/23/25 0531 Physical exam: General: Well alert, well oriented, not confused, not agitated, not in acute distress, well cooperated during the physical. HEENT: Conjunctive are pink, sclerae clear, no icterus, pupil is equal in both sides, reactive to light, no ear discharge, no pharyngeal erythema or an edema. Neck: Supple, no JVD, no lymphadenopathy and thyromegaly. Chest: Equal air entry on both lungs, no additional sounds no rhonchi no wheezing at the moment. Cardiovascular: S1-S2 regular sinus rhythm and, regular rate, no gallops, no rubs, no murmurs Abdomen: Abdomen distended but not tense status post paracentesis yesterday. 3600 mL fluid drained. Tenderness on deep palpation in all quadrants. No guarding no rigidity Extremities: Bilateral pedal pedal edema 4+ till knee joint, peripheral pulses palpated Central Nervous System: Patient as drowsy and confused today Moving all 4 extremities, 2+ deep tendon reflexes, negative Babinski. No flapping tremor no signs of hepatic encephalopathy Musculoskeletal: No joint swelling, deformities, inflammations, and no scoliosis and back tenderness Skin: Easy bruisability of the skin, many spider angiomas seen on the extremities Coagulation Studies Laboratory Tests Test 01/19/25 10:45 Prothrombin Time 13.5 SECONDS (9.0-12.0) H INR International Normalized Ratio 1.4 INR Coagulation Comments Advance Care Planning Advanced Care plannin - 30 Minutes Assessment Assessment Assessment: This 73-year-old male with past medical history of nonalcoholic liver cirrhosis diagnosed one month ago associated with portal hypertension, cirrhosis, COPD who came to the ER in view of hematemesis. Plan Plan Plan: Hepatic encephalopathy most likely due to decompensated liver cirrhosis Not meeting sirs criteria 01/20/2025: No raise in temperature, systolic blood pressure in 100s WBC 10.5. Lactic acid increased from 2.4-3.6. Ammonia stable at 19. proCalcitonin 0.27 Started ceftriaxone 1 g IV daily dose Hydration with 100 mL/hour NS. Serum creatinine 2.58, BUN 50 Blood culture sent 01/21/2025: Pulse rate 140, blood pressure soft, systolic blood pressure in 100s WBC 9.3, lactic acid reduced from 2.4-1.7, ammonia increased from 19 due 42 We will stop ceftriaxone since sepsis and SBP is ruled out. 01/22/2025: Pulse rate in 70s, blood pressures soft systolic blood pressure in 100s WBC 10.3, H&H 14.8 and 43.6, lactic acid increased from 1.7-2.4, ammonia decreased from 42-19 We will continue monitoring Hematemesis most likely due to retching v/s esophageal varices 01/19/2025: Three episodes of hematemesis, patient was on Eliquis for atrial fibrillation Eliquis withheld PT 13.5, INR 1.4 PCC administered in ER H&H 16.1 and 46.6. WBC 12.9, mostly reactive, lactic acid 2.8 Octreotide drip administered in ER along with Protonix IV 80 mg. Endoscopy done three weeks ago did not show any varices. We will start Protonix drip Aspiration precaution in place 01/20/2025: No more episodes of hematemesis 01/21/2025: Patient could not undergo endoscopy today due to atrial fibrillation with rapid ventricular rate of 140s 01/22/2025: No further episodes of vomiting or hematemesis We will plan for endoscopy on Friday, if required. Decompensated Nonalcoholic liver cirrhosis with portal hypertension leading to hepatic encephalopathy Child pughs score- 11. class C 01/19/2025: Total bilirubin 2.7, AST 62, ALT 31, ALP 152 Total protein 6.1, albumin 2.4, globulin 3.7, ammonia 19 Abdomen distended, tympanic on percussion and fluid thrill palpable Therapeutic paracentesis done three weeks ago showed SAAG >1.1 Endoscopy done three weeks ago did not show any varices. Started Lasix 20 mg IV b.i.d. to hold IV fluids Patient complaining of rectal pain, but no diarrhea or constipation and blood in stools or black tarry stools We will continue monitoring symptoms 01/20/2025: Patient not following commands, increased drowsiness Aspiration precautions in place Abdomen remains distended tympanic on percussion fluid thrill palpable. Underwent diagnostic and therapeutic paracentesis today. Drained 3600 mL fluid. Started on lactulose 200 mg enema. Gastroenterology consulted. Suggested medical management for now. Started hydration with 100 mL/hour NS. When there is an improvement in kidney function and mentation, came balanced hydration with diuresis. Can consider using spironolactone with Lasix for diuresis. 01/21/2025: Continue hydration with 500 mL bolus and 100 mL/hour normal saline Abdomen remains distended, status post paracentesis, 3600 mL yellow fluid drained yesterday Ascitic fluid shows WBC 47, RBC 2080, neutrophils 35, fluid glucose 150- SBP ruled out Continue lactulose p.o. and adjust dosing to make 2 soft stools a day We will stop ceftriaxone today 01/22/2025: Continue hydration with 100 mL/hour NS. The patient passed 200 mL of urine yesterday with positive balance being 1700. we will add albumin 5% b.i.d. today to expand his plasma volume and improve hydration Proximal atrial fibrillation with controlled ventricular 01/19/2025: With Eliquis in view of high PT and hematemesis We will continue monitoring heart rate and rhythm Now in sinus rhythm ECHO: Small LV cavity with normal wall thickness. Overall systolic function is normal. LVEF is 65-70%. Right ventricle is grossly normal in size and function. The left atrium size is grossly normal. Pacemaker lead is present in the right heart. Aortic valve is probably trileaflet with mild sclerosis. No stenosis. No insufficiency. Mitral valve leaflets are mildly thickened with mild annular calcification. No stenosis. Trace regurgitation. Tricuspid valve is grossly normal in structure without significant regurgitation. Pulmonic valve is not well visualized. The aortic root is normal in size. IVC is normal in size. Normal pericardium. No effusion. Pleural effusion present. Technically limited study due to body habitus. Poor to no parasternal or apical views. 01/21/2025: Heart rate of 140s EKG shows AFib Continue flecainide 100 mg p.o. b.i.d. Eliquis in view of high PT and past history of hematemesis Monitor rate and rhythm 01/22/2025: Heart rate maintain around 70s Monitor rate and rhythm Acute on chronic kidney disease 01/20/2025: Creatinine in current admission 2.25, creatinine previous admission three weeks ago 1.18, BUN 46 E GFR 28, troponin 337, most probably due to risk creatinine Patient has no complaints of chest pain, palpitation 01/20/2025: Creatinine raised to 2.58 today. Started hydration with 100 mL/hour NS Watch for of volume overload 01/21/2025: Creatinine still at 2.5 today. Continue hydration 100 mL/hour NS with 500 mL bolus Watch for volume overload. Patient passed urine today. Monitor output 01/19/2025: Creatinine reduced to 2.06 today continue hydration with 100 mL/hour NS with 5% albumin b.i.d. Watch for volume overload. Patient in 1700 positive balance. Positive 200 mL urine yesterday. Input-output monitoring Hypotonic Hyponatremia 01/19/2025: Sodium levels 130 01/20/2025: Sodium levels of 129, urine osmolality 414, urine sodium less than 15, serum osmolality 290 hydration with 100 mL/hour NS 01/21/2025: Sodium levels are 127. We will continue hydration 01/22/2025: Sodium levels are 128 Rectal pain most likely due to external hemorrhoids 01/21/2025: 2-3 normal bowel movements, no blood or black tarry stools Apply hemorrhoidal cream t.i.d. or after every bowel movement. Hypokalemia 01/19/2025: Potassium 3.4 We will continue monitoring levels Hypo/hyperkalemia protocol in place Code Status: Full code DVT prophylaxis: SCDs Analgesia/sedation: None Line/tube: PIV GI prophylaxis: Protonix drip Nutrition: Full liquid diet as tolerated after bedside swallow study Prognosis: Guarded Disposition: continue medical management Daphney Auguste MD PGY1, Internal Medicine [facility] Addendum family asking about prognosis, decided to switch him to dnr Date of Service: Jan 22, 2025 Billing Provider: CEDRIC REDDY MD Common Visit Codes: [id number] INP/OBS CARE(HIGH) DAPHNEY AUGUSTE, RES Jan 22, 2025 18:28 CEDRIC REDDY MD Jan 23, 2025 08:28
[2025-01-22] MEDS: albumin (Human) 5% 250ml 250 ML IV SCH (21:39)
[2025-01-23] VITALS (7 sets, daily range): BP systolic 98–124; BP diastolic 54–69; PULSE 65–80; RESP 12–20; TEMP 96.8–98; O2SAT 94–97
[2025-01-23 06:29] LABS: MEAN PLATELET VOLUME 8.8 FL (7.4-10.4); RED CELL DISTRIBUTION WIDTH 15.3 % (11.5-14.5)
[2025-01-23 07:20] LABS: CREATININE 2.04 MG/DL (0.60-1.10); TOTAL CARBON DIOXIDE 26.5 MMOL/L (24-32); eCRCL 32 ML/MIN; eGFR 31 ML/MIN
[2025-01-23] MEDS: albumin (Human) 5% 250ml 250 ML IV ONE (07:52)
--- NOTE | 2025-01-23 15:47 | PROGRESS NOTE- Residence ---
Progress Note - Resident Providers to CC Resident Creating Document: ROE GOMEZ, RES ~ Antibiotic Timeout Antibiotic Ordered?: Yes Subjective Patient has been evaluated at the bedside. The patient is drowsy, oriented to person but not in place or time. Family at the bedside agreed for do not resuscitate. Objective Vital Signs Date Time Temp Pulse Resp B/P (MAP) Pulse Ox O2 Delivery O2 Flow Rate FiO2 01/23/25 11:00 97.5 65 12 98/54 (69) 96 Room Air 01/23/25 08:00 0.0 21 Physical exam: General: Patient is currently drowsy, oriented to person but not in place or time. HEENT: Conjunctive are pink, sclerae clear, no icterus, pupil is equal in both sides, reactive to light, no ear discharge, no pharyngeal erythema or an edema. Neck: Supple, no JVD, no lymphadenopathy and thyromegaly. Chest: Equal air entry on both lungs, no additional sounds no rhonchi no wheezing at the moment. Cardiovascular: S1-S2 regular sinus rhythm and, regular rate, no gallops, no rubs, no murmurs Abdomen: Abdomen distended, no tenderness, not tense. Extremities: No obvious deformities, 2+ pedal edema, capillary refill intact, peripheral pulsations are intact on both sides, bilateral upper extremities edema. Central Nervous System: The patient is currently drowsy, oriented to person but not in place or time. Musculoskeletal: No joint swelling, deformities, inflammations, and no scoliosis and back tenderness Skin: Warm and dry. Presence of spider angiomas in the level of the extremities. Result Diagram: 01/23/25 0531 01/23/25 0531 Coagulation Studies Laboratory Tests Test 01/19/25 10:45 Prothrombin Time 13.5 SECONDS (9.0-12.0) H INR International Normalized Ratio 1.4 INR Coagulation Comments Assessment Assessment This 73-year-old male with past medical history of nonalcoholic liver cirrhosis diagnosed one month ago associated with portal hypertension, cirrhosis, COPD who came to the ER in view of hematemesis. Plan Plan Hepatic encephalopathy most likely due to decompensated liver cirrhosis Not meeting sirs criteria The patient is currently drowsy, oriented to person but not in place or time. Lactulose 15 g q.6h p.o. Continue to monitor mental status of the patient. Follow-up ammonia levels. Hematemesis most likely due to retching v/s esophageal varices 01/19/2025: Three episodes of hematemesis, patient was on Eliquis for atrial fibrillation Eliquis withheld. Endoscopy done three weeks ago did not show any varices. We will start Protonix drip. 01/20/2025: No more episodes of hematemesis 01/21/2025: Patient could not undergo endoscopy today due to atrial fibrillation with rapid ventricular rate of 140s 01/23/2025: Hemoglobin and hematocrit stable. We will plan for endoscopy on Friday, if required. Continue Protonix 40 mg IV b.i.d. Decompensated Nonalcoholic liver cirrhosis with portal hypertension leading to hepatic encephalopathy Child pughs score- 11. class C 01/19/2025: Total bilirubin 2.7, AST 62, ALT 31, ALP 152 Total protein 6.1, albumin 2.4, globulin 3.7, ammonia 19 Abdomen distended, tympanic on percussion and fluid thrill palpable Therapeutic paracentesis done three weeks ago showed SAAG >1.1 Endoscopy done three weeks ago did not show any varices. Started Lasix 20 mg IV b.i.d. to hold IV fluids Patient complaining of rectal pain, but no diarrhea or constipation and blood in stools or black tarry stools We will continue monitoring symptoms 01/20/2025: Abdomen remains distended tympanic on percussion fluid thrill palpable. Underwent diagnostic and therapeutic paracentesis today. Drained 3600 mL fluid. Started on lactulose 200 mg enema. Gastroenterology consulted. Suggested medical management for now. Started hydration with 100 mL/hour NS. When there is an improvement in kidney function and mentation, came balanced hydration with diuresis. Can consider using spironolactone with Lasix for diuresis. 01/21/2025: Continue hydration with 500 mL bolus and 100 mL/hour normal saline Abdomen remains distended, status post paracentesis, 3600 mL yellow fluid drained yesterday Ascitic fluid shows WBC 47, RBC 2080, neutrophils 35, fluid glucose 150- SBP ruled out Continue lactulose p.o. and adjust dosing to make 2 soft stools a day We will stop ceftriaxone today 01/22/2025: Continue hydration with 100 mL/hour NS. The patient passed 200 mL of urine yesterday with positive balance being 1700. we will add albumin 5% b.i.d. today to expand his plasma volume and improve hydration. 01/23/2025: NS at 80 mL/hour. Received albumin during this morning. Continue to monitor I&Os. Proximal atrial fibrillation with controlled ventricular 01/19/2025: With Eliquis in view of high PT and hematemesis We will continue monitoring heart rate and rhythm Now in sinus rhythm ECHO: Small LV cavity with normal wall thickness. Overall systolic function is normal. LVEF is 65-70%. Right ventricle is grossly normal in size and function. The left atrium size is grossly normal. Pacemaker lead is present in the right heart. Aortic valve is probably trileaflet with mild sclerosis. No stenosis. No insufficiency. Mitral valve leaflets are mildly thickened with mild annular calcification. No stenosis. Trace regurgitation. Tricuspid valve is grossly normal in structure without significant regurgitation. Pulmonic valve is not well visualized. The aortic root is normal in size. IVC is normal in size. Normal pericardium. No effusion. Pleural effusion present. Technically limited study due to body habitus. Poor to no parasternal or apical views. 01/23/2025: Currently rate controlled. Continue flecainide 100 mg p.o. b.i.d. Holding Eliquis. Monitor rate and rhythm Acute on chronic kidney disease Creatinine stable without significant improvement. Increasing IV fluids NS to 80 mL/hour. Hypotonic Hyponatremia Urine osmolality 414, urine sodium less than 15, serum osmolality 290 01/23/2025: Sodium levels 129. Continue IV hydration. Continue to monitor CMP. Rectal pain most likely due to external hemorrhoids Apply hemorrhoidal cream t.i.d. or after every bowel movement. Hypokalemia Potassium within reference range. We will continue monitoring levels Hypo/hyperkalemia protocol in place Code Status: DNR. DVT prophylaxis: SCDs Analgesia/sedation: None Line/tube: PIV GI prophylaxis: Protonix 40 mg IV b.i.d. Nutrition: Full liquid diet. Prognosis: Guarded Disposition: Continue medical management. Patient's family agreed for do not resuscitate. Roe Tam Internal Medicine Resident [facility] Date of Service: Jan 23, 2025 Billing Provider: CEDRIC REDDY MD Common Visit Codes: [id number] INP/OBS CARE(HIGH) ROE GOMEZ, RES Jan 23, 2025 15:47 CEDRIC REDDY MD Jan 24, 2025 06:29
[2025-01-24] VITALS (7 sets, daily range): BP systolic 99–136; BP diastolic 54–75; PULSE 73–108; RESP 10–20; TEMP 96.3–97.6; O2SAT 90–94
[2025-01-24 11:03] LABS: MEAN PLATELET VOLUME 8.3 FL (7.4-10.4); RED CELL DISTRIBUTION WIDTH 15.3 % (11.5-14.5)
[2025-01-24 11:29] LABS: CREATININE 1.54 MG/DL (0.60-1.10); TOTAL CARBON DIOXIDE 22.4 MMOL/L (24-32); eCRCL 43 ML/MIN; eGFR 44 ML/MIN
[2025-01-24] MEDS: albumin (Human) 5% 250ml 250 ML IV SCH (13:36)
--- NOTE | 2025-01-24 13:57 | PROGRESS NOTE- Residence ---
Progress Note - Resident Providers to CC Resident Creating Document: JANET TRINIDAD RES ~ Antibiotic Timeout Antibiotic Ordered?: Yes Subjective Patient has been evaluated at the bedside. The patient is drowsy, oriented to person but not in place or time. Family at the bedside agreed for do not resuscitate. Objective Vital Signs Date Time Temp Pulse Resp B/P (MAP) Pulse Ox O2 Delivery O2 Flow Rate FiO2 01/24/25 11:10 18 01/24/25 10:30 97.5 76 99/65 (76) 94 01/24/25 08:00 Room Air 01/23/25 08:00 0.0 21 Result Diagram: 01/24/25 1024 01/24/25 1024 General: Patient is currently drowsy, oriented to person but not in place or time. HEENT: Conjunctive are pink, sclerae clear, no icterus, pupil is equal in both sides, reactive to light, no ear discharge, no pharyngeal erythema or an edema. Neck: Supple, no JVD, no lymphadenopathy and thyromegaly. Chest: Equal air entry on both lungs, no additional sounds no rhonchi no wheezing at the moment. Cardiovascular: S1-S2 regular sinus rhythm and, regular rate, no gallops, no rubs, no murmurs Abdomen: Abdomen distended, no tenderness, not tense. Extremities: No obvious deformities, 2+ pedal edema, capillary refill intact, peripheral pulsations are intact on both sides, bilateral upper extremities edema. Central Nervous System: The patient is currently drowsy, oriented to person but not in place or time. Musculoskeletal: No joint swelling, deformities, inflammations, and no scoliosis and back tenderness Skin: Warm and dry. Presence of spider angiomas in the level of the extremities. Coagulation Studies Laboratory Tests Test 01/19/25 10:45 Prothrombin Time 13.5 SECONDS (9.0-12.0) H INR International Normalized Ratio 1.4 INR Coagulation Comments Assessment Assessment This 73-year-old male with past medical history of nonalcoholic liver cirrhosis diagnosed one month ago associated with portal hypertension, cirrhosis, COPD who came to the ER in view of hematemesis. Plan Plan Patient condition is deteriorating with decompensated nonalcoholic advanced liver cirrhosis,portal hypertension, hepatic encephalopathy, atrial fibrillation, electrolyte imbalance. At this point of time, Patient could not undergo EGD due to multiple severe systemic diseases, potential risks of doing endoscopy explained to patient's family and discussed it with Dr. Little. Furthermore, patient is not actively bleeding. Decompensated Nonalcoholic liver cirrhosis with portal hypertension Hepatic encephalopathy Paroxysmal atrial fibrillation with controlled RVR Acute on chronic kidney disease Hypotonic Hyponatremia Rectal pain most likely due to external hemorrhoids Hypokalemia - continue management as per the primary team. Code Status: DNR. DVT prophylaxis: SCDs Analgesia/sedation: None Line/tube: PIV GI prophylaxis: Protonix 40 mg IV b.i.d. Nutrition: Full liquid diet. Prognosis: Guarded Disposition: Patient was initially planned for EGD. This point of time patient could not undergo endoscopy due to advanced liver disease, AFib, electrolyte imbalance and discussed it with Dr. Little. Minerva Trinidad MD Internal Medicine Resident, pgy 1 Date of Service: Jan 24, 2025 Billing Provider: GEO HUMMEL MD, SUNIL KUMAR, RES Jan 24, 2025 13:57 GEO HUMMEL MD Jan 24, 2025 16:39
[2025-01-24] MEDS: lactose-reduced food (Ensure Enlive) - 237ml bottle PO SCH (18:00)
--- NOTE | 2025-01-24 18:41 | PROGRESS NOTE- Residence ---
Progress Note - Resident Providers to CC Resident Creating Document: SHAWN KNOX RES ~ Antibiotic Timeout Antibiotic Ordered?: No Subjective Patient was evaluated and seen at bedside. at bedside wishes to transfer patient to rehab facility; and she will consider comfort care later depending on progress. Referrals for transferred to rehab center per case management Objective Vital Signs Date Time Temp Pulse Resp B/P (MAP) Pulse Ox O2 Delivery O2 Flow Rate FiO2 01/24/25 15:00 97.6 73 12 136/75 (95) 94 01/24/25 08:00 Room Air 01/23/25 08:00 0.0 21 Result Diagram: 01/24/25 1024 01/24/25 1024 General: Patient is currently drowsy, oriented to person but not in place or time. HEENT: Conjunctive are pink, sclerae clear, no icterus, pupil is equal in both sides, reactive to light, no ear discharge, no pharyngeal erythema or an edema. Neck: Supple, no JVD, no lymphadenopathy and thyromegaly. Chest: Equal air entry on both lungs, no additional sounds no rhonchi no wheezing at the moment. Cardiovascular: S1-S2 regular sinus rhythm and, regular rate, no gallops, no rubs, no murmurs Abdomen: Abdomen distended, no tenderness, not tense. Extremities: No obvious deformities, 2+ pedal edema, capillary refill intact, peripheral pulsations are intact on both sides, bilateral upper extremities edema. Central Nervous System: The patient is currently drowsy, oriented to person but not in place or time. Musculoskeletal: No joint swelling, deformities, inflammations, and no scoliosis and back tenderness Skin: Warm and dry. Presence of spider angiomas in the level of the extremities. Coagulation Studies Laboratory Tests Test 01/19/25 10:45 Prothrombin Time 13.5 SECONDS (9.0-12.0) H INR International Normalized Ratio 1.4 INR Coagulation Comments Advance Care Planning Advanced Care plannin - 30 Minutes Assessment Assessment This 73-year-old male with past medical history of nonalcoholic liver cirrhosis diagnosed one month ago associated with portal hypertension, cirrhosis, COPD who came to the ER in view of hematemesis. Plan Plan 1. Hepatic Encephalopathy secondary to Decompensated Nonalcoholic Liver Cirrhosis (Child-Hurley C, Score 11) MELD Na Score: 22, 7-10% 90 Day Mortality Patient currently drowsy, oriented only to person, not to place or time. Ascites confirmed on exam; status post therapeutic paracentesis (3.6L removed on 01/20). Ascitic fluid negative for SBP (WBC 47, neutrophils 35). Ammonia on admission 19, trended up to 42, currently trended down to 19. On Lactulose 15g PO q6h (goal: 2 soft stools/day). Albumin 5% IV BID started on 01/22 for volume expansion due to poor urine output (200 mL/24h). Lasix 20mg IV BID continued for volume management; holding spironolactone until renal function stabilizes. Plan: Continue lactulose PO/enema, titrate to achieve 2 soft stools/day. Monitor mental status, ammonia, CMP daily. Initiated albumin 5% 250 mL at 75 cc/hour and cautious IV hydration (NS 80 mL/hr). Hold Eliquis indefinitely due to recent hematemesis and high bleeding risk. Gastroenterology following medical management for now. 2. Upper GI Bleed (Resolved Hematemesis) likely retching vs. varices Three episodes of hematemesis on 01/19, on Eliquis for AF at that time (now held). No varices on EGD three weeks ago; unable to repeat EGD on 01/21 due to AF with RVR. Hemoglobin stable since 01/20. On Protonix 40mg IV BID. Plan: Continue PPI therapy. Gastroenterology reassess today and recommended to hold EGD for now in view of advanced liver disease, AFib, electrolyte imbalance Maintain Eliquis on hold due to GI bleed and liver disease. 3. Decompensated Nonalcoholic Liver Cirrhosis with Portal Hypertension Ascites Persistent ascites despite diuretics; status post multiple paracenteses. Labs (01/19): TBili 2.7, Albumin 2.4, AST 62, ALT 31, ALP 152. Prognosis guarded given MELD-Na > 20 and Child-Hurley C. Plan: Continue diuretics as tolerated with close monitoring of renal function. Repeat paracentesis PRN for symptomatic relief. Monitor I&O, daily weights, CMP. 4. Atrial Fibrillation (Currently Rate Controlled) Mark Vasc score 3 Initially presented with AF with RVR (HR 140s); now in sinus rhythm, rate controlled. ECHO (01/19): LVEF 65-70%, no significant valvular disease, pacemaker lead in situ. Current therapy: Flecainide 100mg PO BID, Metoprolol 25mg BID. Plan: Continue current rate/rhythm control regimen. Hold anticoagulation given high bleeding risk. Telemetry monitoring. 5. Acute on Chronic Kidney Disease with Hypotonic Hyponatremia (Likely Type 2 HRS vs. Prerenal due to low effective volume) Baseline CKD with poor urine output; Cr stable but elevated (12.42 on 01/23). Hyponatremia (Na 129), Urine osm 414, Urine Na <15, Serum osm 290. Plan: Continue cautious IV hydration (NS 80 mL/hr). Monitor renal function, electrolytes daily. Continue midodrine PO TID 6. Rectal Pain Likely External Hemorrhoids No active bleeding or melena. Plan: Continue topical hemorrhoidal cream TID and after BMs. 7. Electrolyte Management Hypokalemia: Resolved, continue monitoring. Hypo/Hyperkalemia protocol in place. 8. Code Status & Goals of Care Patient is currently DNR. Discussion held with (primary decision-maker) regarding poor long-term prognosis. wishes to transfer patient to rehab facility; will consider comfort care later depending on progress. Referrals for transferred to rehab center per case management DVT Prophylaxis: SCDs only (no pharmacologic prophylaxis due to bleeding risk). GI Prophylaxis: Protonix IV BID. Diet: Full liquids. Lines: PIV only. Prognosis: Guarded; decompensated cirrhosis with multi-organ dysfunction. Shawn Knox MD Internal Medicine Resident, PGY-2 Date of Service: Jan 24, 2025 Billing Provider: CEDRIC REDDY MD Common Visit Codes: [id number] INP/OBS CARE(HIGH) SHAWN KNOX, RES Jan 24, 2025 18:41 CEDRIC REDDY MD Jan 25, 2025 07:36
[2025-01-25] VITALS (7 sets, daily range): BP systolic 95–146; BP diastolic 62–99; PULSE 70–87; RESP 16–20; TEMP 96.5–98; O2SAT 92–97
[2025-01-25 07:37] LABS: MEAN PLATELET VOLUME 8.4 FL (7.4-10.4); RED CELL DISTRIBUTION WIDTH 15.6 % (11.5-14.5)
[2025-01-25 07:51] LABS: CREATININE 1.57 MG/DL (0.60-1.10); TOTAL CARBON DIOXIDE 25.5 MMOL/L (24-32); eCRCL 42 ML/MIN; eGFR 43 ML/MIN
--- NOTE | 2025-01-25 15:09 | PROGRESS NOTE- Residence ---
Progress Note - Resident Providers to CC Resident Creating Document: SHAWN KNOX RES ~ Antibiotic Timeout Antibiotic Ordered?: No Subjective Patient was evaluated and seen at bedside. Patient is disoriented, and family has elected to transition to comfort focused care after goals of care discussion with the patient's and son at bedside. DNR status was established per patient wishes initially but was currently being transitioned to DNR with comfort care. The patient is being managed with symptomatic PICC directed measures only including opiates for pain dyspnea and supplemental oxygen as needed and anxiolytics-Ativan for agitation and discontinuation of non beneficial interventions. automotive services manager were consulted and arrangements made for home hospice services. Patient is scheduled for discharge home with the hospice tomorrow at 2:00 p.m. per family's request. Objective Vital Signs Date Time Temp Pulse Resp B/P (MAP) Pulse Ox O2 Delivery O2 Flow Rate FiO2 01/25/25 11:00 97.5 87 17 122/71 (88) 97 Room Air 01/25/25 08:45 0.0 21 Result Diagram: 01/25/25 0711 01/25/25 0711 General: Patient is currently drowsy, oriented to person but not in place or time. HEENT: Conjunctive are pink, sclerae clear, no icterus, pupil is equal in both sides, reactive to light, no ear discharge, no pharyngeal erythema or an edema. Neck: Supple, no JVD, no lymphadenopathy and thyromegaly. Chest: Equal air entry on both lungs, no additional sounds no rhonchi no wheezing at the moment. Cardiovascular: S1-S2 regular sinus rhythm and, regular rate, no gallops, no rubs, no murmurs Abdomen: Abdomen distended, no tenderness, not tense. Extremities: No obvious deformities, 2+ pedal edema, capillary refill intact, peripheral pulsations are intact on both sides, bilateral upper extremities edema. Central Nervous System: The patient is currently drowsy, oriented to person but not in place or time. Musculoskeletal: No joint swelling, deformities, inflammations, and no scoliosis and back tenderness Skin: Warm and dry. Presence of spider angiomas in the level of the extremities. Coagulation Studies Laboratory Tests Test 01/19/25 10:45 Prothrombin Time 13.5 SECONDS (9.0-12.0) H INR International Normalized Ratio 1.4 INR Coagulation Comments Advance Care Planning Advanced Care plannin - 30 Minutes Assessment Assessment This 73-year-old male with past medical history of nonalcoholic liver cirrhosis diagnosed one month ago associated with portal hypertension, cirrhosis, COPD who came to the ER in view of hematemesis. Plan Plan 1. Hepatic Encephalopathy secondary to Decompensated Nonalcoholic Liver Cirrhosis (Child-Hurley C, Score 11) MELD Na Score: 22, 7-10% 90 Day Mortality 2. Upper GI Bleed (Resolved Hematemesis) likely retching vs. varices 3. Decompensated Nonalcoholic Liver Cirrhosis with Portal Hypertension Ascites 4. Atrial Fibrillation (Currently Rate Controlled) Mark Vasc score 3 5. Acute on Chronic Kidney Disease with Hypotonic Hyponatremia (Likely Type 2 HRS vs. Prerenal due to low effective volume) 6. Rectal Pain Likely External Hemorrhoids 7. Electrolyte Management 8. Code Status & Goals of Care Patient is currently DNR. Discussion held with (primary decision-maker) regarding poor long-term prognosis. wishes to transfer patient to rehab facility; will consider comfort care later depending on progress. Referrals for transferred to rehab center per case management Patient is disoriented, and family has elected to transition to comfort focused care after goals of care discussion with the patient's and son at bedside. DNR status was established per patient wishes initially but was currently being transitioned to DNR with comfort care. The patient is being managed with symptomatic PICC directed measures only including opiates for pain dyspnea and supplemental oxygen as needed and anxiolytics-Ativan for agitation and discontinuation of non beneficial interventions. automotive services manager were consulted and arrangements made for home hospice services. Patient is scheduled for discharge home with the hospice tomorrow at 2:00 p.m. per family's request. Shawn Knox MD Internal Medicine Resident, PGY-2 Date of Service: Jan 25, 2025 Billing Provider: CEDRIC REDDY MD Common Visit Codes: [id number] INP/OBS CARE(HIGH) Secondary Visit Codes: [id number] CARE PLAN 30 MINUTES SHAWN KNOX, RES Jan 25, 2025 15:09 CEDRIC REDDY MD Jan 26, 2025 06:45
[2025-01-25] MEDS: ceFAZolin/D5W- 1GM premix 50 ML IV SCH (16:00)
[2025-01-25] MEDS ORDERED: morphine 10mg/0.5ml (conc. morphine) oral syringe PO PRN (17:10)
[2025-01-25] MEDS ORDERED: morphine 10mg/ml inj. IV PRN (17:10)
[2025-01-25] MEDS ORDERED: diazepam inj 5 MG/ML inj. IV PRN (17:45)
[2025-01-25] MEDS: docusate sod 100mg capsule PO SCH (19:31)
[2025-01-26 11:28] VITALS: RESP 14
--- NOTE | 2025-01-26 12:01 | DISCHARGE SUMMARY-Residence ---
Discharge Summary Providers to Resident Creating Document: SHAWN GALLEGOS, RES ~ Discharge Summary Admission Diagnosis: GI bleeding, Afib Hospital Course DATE OF ADMISSION: 01/20/2024 DATE OF DISCHARGE: 01/27/2024 Discharge Diagnosis\Comment: 1. Hepatic Encephalopathy secondary to Decompensated Nonalcoholic Liver Cirrhosis (Child-Hurley C, Score 11) MELD Na Score: 22, 7-10% 90 Day Mortality 2. Upper GI Bleed (Resolved Hematemesis) likely retching vs. varices 3. Decompensated Nonalcoholic Liver Cirrhosis with Portal Hypertension Ascites 4. Atrial Fibrillation (Currently Rate Controlled) Mark Vasc score 3 5. Acute on Chronic Kidney Disease with Hypotonic Hyponatremia (Likely Type 2 HRS vs. Prerenal due to low effective volume) 6. Rectal Pain Likely External Hemorrhoids 7. Electrolyte Management: Hypokalemia Operations\Procedures: Paracentesis Consultants: [employer] Supervisor team Gastroenterology Complications: None Condition on DC: Stable Discharge Summary: HPI as per admitting physician: This 79-year-old male with past medical history of nonalcoholic liver cirrhosis diagnosed one month ago associated with portal hypertension, cirrhosis, COPD who came to the ER in view of hematemesis. The patient was discharged from [facility] and was sent to a rehab. The patient was in a rehab center two weeks after which he went home. He had vomiting since two weeks three to 4 times a day, which contained food particles, not blood stained or bile stained. Today he had three episodes of vomiting in the morning. The 1st episode contained black vomitus in the 3rd episode contained bright red blood approximately 2 tbsp. He also complains of pain in his rectum, most probably due to hemorrhoids. He does not complain of diarrhea or constipation or blood in stool or black tarry stools. He complains of progressive increase in abdominal distention not associated abdominal pain. And progressive swelling of his bilateral lower limbs, No complaints of chest pa in, heartburn, palpitation. Hospital course: The patient is a 66-year-old male with a history of nonalcoho lic cirrhosis complicated by portal hypertension, chronic obstructive pulmonary disease, chronic kidney disease, and atrial fibrillation on Eliquis, who presented to the emergency department on 01/19 with three episodes of hematemesis. On arrival, he was hemodynamically stable. His MELD-Na score was 22, corresponding to a 710% estimated 90-day mortality. Laboratory studies were notable for a creatinine of 2.42 mg/dL, sodium of 129 mmol/L, total bilirubin of 2.7 mg/dL, and albumin of 2.4 g/dL. Hemoglobin remained stable throughout admission. EGD was not performed during this hospitalization due to recent atrial fibrillation with rapid ventricular response and significant electrolyte abnormalities. A prior EGD performed three weeks earlier showed no varices. He was admitted to the medical service for management of upper gastrointestinal bleeding in the context of decompensated cirrhosis. During hospitalization, the patients hematemesis resolved following discontinuation of Eliquis and initiation of intravenous proton pump inhibitor therapy with Protonix 40 mg BID. He experienced progressive hepatic encephalopathy manifested by drowsiness and disorientation to place and time. Serum ammonia was 19 mol/L on admission, peaked at 42 mol/L, and improved to 19 mol/L with oral lactulose titrated to achieve two soft stools per day. Ascites was confirmed on examination, and he underwent therapeutic paracentesis on 01/20, with removal of 3.6 liters of fluid. Ascitic fluid analysis was negative for spontaneous bacterial peritonitis. He was maintained on intravenous furosemide for volume control, with spironolactone held due to renal dysfunction. Persistent poor urine output prompted initiation of 5% albumin infusions and cautious intravenous hydration with normal saline at 80 mL/hour. Renal function remained impaired, with stable but elevated creatinine and hypotonic hyponatremia (serum sodium 129 mmol/L, urine sodium <15 mmol/L, urine osmolality 414 mOsm/kg), consistent with low effective circulating volume in the setting of advanced liver disease. Midodrine was started to support renal perfusion. Electrolyte disturbances, including hypokalemia, were corrected and monitored with hospital protocols in place. Cardiac history was notable for atrial fibrillation with RVR on admission (HR 140s). He converted to sinus rhythm on flecainide and metoprolol and remained rate-controlled throughout his hospital stay. Given his MICHA?DS?-VASc score of 3 but recent gastrointestinal bleeding and decompensated cirrhosis, anticoagulation was held, and he was maintained on telemetry monitoring. Rectal pain secondary to external hemorrhoids was treated with topical therapy. Despite control of gastrointestinal bleeding, stabilization of hepatic encephalopathy, and resolution of acute cardiac issues, his overall prognosis remained poor due to end-stage liver disease with refractory ascites, chronic kidney disease, and progressive functional decline. Goals of care were discussed extensively with his , the primary decision-maker, and his son. In alignment with the patients previously expressed wishes, the decision was made to transition to comfort-focused care. Non-beneficial interventions were discontinued, and he was managed with symptom-directed therapies including opioids for pain and dyspnea, supplemental oxygen as needed, and lorazepam for agitation. Case management arranged for home hospice services, and the patient was scheduled for discharge home with hospice on 01/27. Physical examination today: General: Patient is currently drowsy, oriented to person but not in place or time. HEENT: Conjunctive are pink, sclerae clear, no icterus, pupil is equal in both sides, reactive to light, no ear discharge, no pharyngeal erythema or an edema. Neck: Supple, no JVD, no lymphadenopathy and thyromegaly. Chest: Equal air entry on both lungs, no additional sounds no rhonchi no wheezing at the moment. Cardiovascular: S1-S2 regular sinus rhythm and, regular rate, no gallops, no rubs, no murmurs Abdomen: Abdomen distended, no tenderness, not tense. Extremities: No obvious deformities, 2+ pedal edema, capillary refill intact, peripheral pulsations are intact on both sides, bilateral upper extremities edema. Central Nervous System: The patient is currently drowsy, oriented to person but not in place or time. Musculoskeletal: No joint swelling, deformities, inflammations, and no scoliosis and back tenderness Skin: Warm and dry. Presence of spider angiomas in the level of the extremities. Laboratory Tests Test 01/25/25 07:11 01/25/25 08:23 01/25/25 10:41 White Blood Count 12.3 X10'3 Red Blood Count 4.54 X10'6 Hemoglobin 14.1 g/dl Hematocrit 41.3 % Mean Corpuscular Volume 91.0 FL Mean Corpuscular Hemoglobin 31.1 PG Mean Corpuscular Hemoglobin Concent 34.1 g/dL Red Cell Distribution Width 15.6 % Platelet Count 202 X10'3 Mean Platelet Volume 8.4 FL Neutrophils (%) (Auto) 77.2 % Lymphocytes (%) (Auto) 15.4 % Monocytes (%) (Auto) 7.0 % Eosinophils (%) (Auto) 0.1 % Basophils (%) (Auto) 0.3 % Neutrophils # (Auto) 9.4 X10'3 Lymphocytes # (Auto) 1.9 X10'3 Monocytes # (Auto) 0.9 X10'3 Eosinophils # (Auto) 0.0 X10'3 Basophils # (Auto) 0.0 X10'3 CBC Comment Sodium Level 132 MMOL/L Potassium Level 3.8 MMOL/L Chloride Level 99 MMOL/L Carbon Dioxide Level 25.5 MMOL/L Anion Gap 8 Blood Urea Nitrogen 39 MG/DL Creatinine 1.57 MG/DL Estimated GFR/1.73 m2 43 ML/MIN BUN/Creatinine Ratio 24.8 Glucose Level 113 MG/DL Calcium Level 8.2 MG/DL Total Bilirubin 1.7 MG/DL Aspartate Amino Transf (AST/SGOT) 30 U/L Alanine Aminotransferase (ALT/SGPT) 25 U/L Alkaline Phosphatase 122 IU/L Total Protein 5.1 G/DL Albumin 2.4 G/DL Globulin 2.7 G/DL Albumin/Globulin Ratio 0.9 Chemistry Comments Lactic Acid Level 2.8 MMOL/L 3.1 MMOL/L Procalcitonin 0.48 NG/ML Advise on discharge Hospice team to resume care at home *Problems/Diagnosis: (1) Cirrhosis of liver with ascites Status: Acute (2) Chronic obstructive pulmonary disease Status: Acute Total Time Spent on D/C: > 30 Minutes Date of Service: Jan 26, 2025 Billing Provider: PERLA WILKERSON MD Common Visit Codes: 08127-UEL/OBS DISCH DAY >30min SHAWN GALLEGOS, RES Jan 26, 2025 12:01 PERLA WILKERSON MD Jan 26, 2025 18:40
== END 2025-01-26 14:09 | disposition hospice, home (50) | DRG 432 ==
LOC: ER 10:28 → ED HOLD 12:15 → EDBEDREQTM 13:13 → PCU 3S 14:07
PROVIDERS: ADMIT Internal Medicine; ATTEND Internal Medicine
PROC: 0W9G3ZZ Drainage of Peritoneal Cavity, Percutaneous Approach (ICD-10-PCS; principal; 2025-01-20)
DX: K74.60 Unspecified cirrhosis of liver (principal); A41.9 Sepsis, unspecified organism; I85.11 Secondary esophageal varices with bleeding; E87.1 Hypo-osmolality and hyponatremia; N17.9 Acute kidney failure, unspecified; R18.8 Other ascites; K76.6 Portal hypertension; K76.82 Hepatic encephalopathy; E86.0 Dehydration; K64.8 Other hemorrhoids; E87.6 Hypokalemia; J44.9 Chronic obstructive pulmonary disease, unspecified; I48.91 Unspecified atrial fibrillation; Z87.891 Personal history of nicotine dependence; Z79.01 Long term (current) use of anticoagulants; Z79.899 Other long term (current) drug therapy; Z95.0 Presence of cardiac pacemaker
CPT/HCPCS: 36415; 36600; 49083; 71045; 80053; 81001; 82042; 82140; 82803; 82945; 83605; 83615; 83690; 83735; 83930; 83935; 84145; 84157; 84300; 84484; 85018; 85025; 85027; 85610; 86140; 86885; 86900; 86901; 87040; 87070; 87075; 87081; 87088; 89051; 93005; 93308; 96365; 96375; 97110; 97161; 97530; 97535; 99285; A4615; A4620; A6212; A6213; A6250; A6258; A6590; C1729; C1758; G0378; J0696; J1160; J2270; J2354; J2405; J2470; J7030; J7040; J7070; J7168; P9045; P9047